=== PATIENT | male | born 1990 | race Caucasian/White ===

== ENCOUNTER → 2018-01-06 15:32 | Outpatient (CLI) | payer BC, SELFPAY ==
[2018-01-06 16:23] LABS: Basophils # 0.1 K/mm3 (0-0.2); Basophils % 1.2 % (0.1-2.0); Eosinophils # 0.5 K/mm3 (0.0-0.4); Eosinophils % 6.7 % (0.1-12.0); Hematocrit 46.9 % (42.0-52.0); Hemoglobin 15.8 g/dL (14.1-18.0); Lymphocytes # 1.8 K/mm3 (0.7-4.5); Lymphocytes % 23.7 K/mm3 (10-50); Mean Corpuscular HGB Conc 33.7 g/dL (31.8-35.4); Mean Corpuscular Hemoglobin 29.7 pg (27.0-31.2); Mean Corpuscular Volume 88.3 fl (80-94); Mean Platelet Volume 7.7 fl (7.4-10.4); Monocytes # 0.3 K/mm3 (0.1-1.0); Monocytes % 4.4 % (1.7-9.3); Neutrophils # 4.9 K/mm3 (1.8-7.8); Neutrophils % 64.1 % (37.0-80.0); Platelet Count 229 K/mm3 (142-424); Red Blood Count 5.31 M/mm3 (4.60-6.20); Red Cell Distribution Width 12.4 % (11.5-17.5); White Blood Count 7.6 K/mm3 (4.8-10.8)
[2018-01-06 16:49] LABS: Alanine Aminotransferase 23 U/L (12-78); Albumin Level 3.8 gm/dL (3.4-5.0); Albumin/Globulin Ratio 1.1 (1.1-1.8); Alkaline Phosphatase 83 U/L (46-116); Anion Gap 12.7 mEq/L (5-15); Bilirubin,Total 0.4 mg/dL (0.2-1.0); Blood Urea Nitrogen 16 mg/dL (7-18); Carbon Dioxide 27 mmol/L (21.0-32.0); Chloride 100 mmol/L (98-107); Chol/HDL Ratio 6.6 (1-3.5); Cholesterol 244 mg/dL (140-200); Estimated Glomerular Filt Rate 88 ml/min (>60); GFR (African American) 107 ML/MIN (>60); Globulin 3.4 gm/dl (1.3-3.2); Glucose 337 mg/dL (74-106); HDL Cholesterol 37 mg/dL (27-67); LDL Cholesterol 136 mg/dL (0-130); Sodium 135 mmol/L (136-145); T4 (Thyroxine) 7.1 ug/dl (4.7-13.3); Thyroid Stimulating Hormone 1.09 uIU/ml (0.358-3.740); Total Protein,Serum 7.2 gm/dL (6.4-8.2); Triglycerides 354 mg/dL (30-200); VLDL Cholesterol 71 mg/dL (0-40)
[2018-01-06 17:00] LABS: Hemoglobin A1C 9.3 % (0.0-7.0)
[2018-01-06 17:12] LABS: Aspartate Amino Transferase 11 U/L (15-37); Potassium 4.7 mmoL/L (3.5-5.1)
[2018-01-08 11:10] LABS: Hep A Ab, IgM Negative (Negative); Hepatitis B Core Antibody IgM Negative (Negative); Hepatitis B Surface Antigen Negative (Negative)
[2018-01-10 15:37] LABS: Hepatitis C Antibody <0.1 s/co ratio (0.0-0.9); Vitamin D 25 Hydroxy 19.8 ng/mL (30.0-100.0)
== END ==
PROVIDERS: Visit Provider Nurse Practitioner Family
DX: E11.9 Type 2 diabetes mellitus without complications (principal)
CPT/HCPCS: 36415; 80053; 80061; 80074; 82652; 83036; 84436; 84443; 85025

== ENCOUNTER → 2018-01-24 08:31 | Outpatient (CLI) | payer BC, SELFPAY | PROVIDERS: PCP Emergency Medicine; Visit Provider Nurse Practitioner Family | DX: E11.9 Type 2 diabetes mellitus without complications (principal) | CPT/HCPCS: 97802; G0108 ==

== ENCOUNTER → 2018-07-27 13:16 | Outpatient (CLI) | payer BC, SELFPAY ==
[2018-07-27 14:04] LABS: Hemoglobin A1C 7.2 % (0.0-7.0)
[2018-07-27 14:17] LABS: Basophils # 0.1 K/mm3 (0-0.2); Basophils % 1.2 % (0.1-2.0); Eosinophils # 0.7 K/mm3 (0.0-0.4); Eosinophils % 8.9 % (0.1-12.0); Hematocrit 45.2 % (42.0-52.0); Hemoglobin 15.2 g/dL (14.1-18.0); Lymphocytes # 1.5 K/mm3 (0.7-4.5); Lymphocytes % 19.8 K/mm3 (10-50); Mean Corpuscular HGB Conc 33.6 g/dL (31.8-35.4); Mean Corpuscular Hemoglobin 29.7 pg (27.0-31.2); Mean Corpuscular Volume 88.6 fl (80-94); Mean Platelet Volume 7.2 fl (7.4-10.4); Monocytes # 0.3 K/mm3 (0.1-1.0); Monocytes % 4.2 % (1.7-9.3); Neutrophils % 65.9 % (37.0-80.0); Platelet Count 221 K/mm3 (142-424); Red Blood Count 5.11 M/mm3 (4.60-6.20); White Blood Count 7.6 K/mm3 (4.8-10.8)
[2018-07-27 14:41] LABS: Alanine Aminotransferase 26 U/L (12-78); Albumin Level 3.9 gm/dL (3.4-5.0); Albumin/Globulin Ratio 1.4 (1.1-1.8); Alkaline Phosphatase 90 U/L (46-116); Anion Gap 12.6 mEq/L (5-15); Aspartate Amino Transferase 16 U/L (15-37); Bilirubin,Total 0.6 mg/dL (0.2-1.0); Blood Urea Nitrogen 19 mg/dL (7-18); Calcium 8.7 mg/dL (8.5-10.1); Carbon Dioxide 27 mmol/L (21.0-32.0); Chloride 103 mmol/L (98-107); Cholesterol 191 mg/dL (140-200); Creatinine,Serum 0.94 mg/dL (0.70-1.30); Estimated Glomerular Filt Rate 94 ml/min (>60); GFR (African American) 114 ML/MIN (>60); Globulin 2.8 gm/dl (1.3-3.2); Glucose 227 mg/dL (74-106); HDL Cholesterol 38 mg/dL (27-67); LDL Cholesterol 98 mg/dL (0-130); Potassium 4.6 mmoL/L (3.5-5.1); Sodium 138 mmol/L (136-145); T4 (Thyroxine) 7.4 ug/dl (4.7-13.3); Thyroid Stimulating Hormone 0.82 uIU/ml (0.358-3.740); Total Protein,Serum 6.7 gm/dL (6.4-8.2); Triglycerides 273 mg/dL (30-200); VLDL Cholesterol 55 mg/dL (0-40)
[2018-07-28 09:07] LABS: Vitamin D 25 Hydroxy 27.6 ng/mL (30.0-100.0)
[2018-07-28 18:41] LABS: Microalbumin, Urine <3.0 ug/mL (Not Estab.)
== END ==
PROVIDERS: PCP Emergency Medicine; Visit Provider Nurse Practitioner Family
DX: E11.9 Type 2 diabetes mellitus without complications (principal); R53.83 Other fatigue
CPT/HCPCS: 36415; 80053; 80061; 82043; 82652; 83036; 84436; 84443; 85025

== ENCOUNTER → 2018-08-14 11:50 | Outpatient (CLI) | payer BC, SELFPAY ==
--- NOTE | 2018-08-14 11:54 | NM_ITS ---
History and Indications: Hypertension, diabetes, hyperlipidemia, family history, chest pain, shortness of breath and fatigue Procedure: Patient exercised on Jeffrey protocol 11 minutes and 15 seconds, resting heart rate was 56 bpm resting blood pressure 136/75, with exercise maximum heart rate achieved was 1 89 bpm is equal to 99% of the maximum predicted heart rate and a blood pressure was 180/70. Test was started due to shortness of breath and fatigue, patient has good exercise capacity, achieved 12.8mets of workload on treadmill, the blood pressure response to exercise was adequate. Electrocardiogram: Resting electrocardiogram showed sinus bradycardia, with exercise there is less than 1.[address] segment depression noted from the baseline EKG. The EKG portion of the exercise Myoview is negative for ischemia. Cardiac stress and resting SPECT images: Cardiac stress and resting SPECT images were obtained using technetium 99 Myoview 31.4 mCi stress and 10.2 mCi at rest gated SPECT further analysis of segmental wall motion and calculation of the ejection fraction also done. Cardiac stress and rest SPECT images show uniform myocardial activity without segmental perfusion abnormality, computer derived ejection fraction is 61% with no regional wall motion abnormality, right ventricle is normal size and contractility. Conclusion: 1. The EKG portion of the exercise Myoview is negative for ischemia, patient has good exercise capacity achieved 12.8mets of workload on treadmill, the blood pressure response to exercise with adequate, patient complained of atypical chest pain with exercise with no EKG changes. 2. No scintigraphic evidence of reversible ischemia seen, computer derived ejection fraction is 61% with no regional wall motion abnormality, right ventricle is normal size and contractility.
--- NOTE | 2018-08-14 11:54 | CA_ITS ---
PROCEDURE: 2-D M-mode and color Doppler study INDICATIONS FOR THE TEST: Chest pain X COPD Heart Murmur Tobacco SmokingEX Palpitations FatigueX Syncope Edema Hypertension Diabetes MellitusX Rheumatic Fever SOB DOEXObesity Hyperlipidemia Family History HDX Additional History PATIENT INFORMATION HEIGHT: 64 WEIGHT:192 GENDER: Male B/P:131/75 2-D/M-MODE INTERPRETATION: 2-D MEASUREMENTS OBSERVED VALUES IN CMS Right Ventricular Dimension (RVDd) 1.6 Interventricular Septum (Thickness)(IVsd) .8 Left Ventricular Internal Dimensions(LVIDd) 5.0 Left Ventricular Posterior Wall (Thickness)(LVPWd) 1.0 Aortic Root 3.6 Aortic Cusp Separation 2.2 Left Atrial Dimensions (LAD) 2.7 2D 1. Left atrium is normal size, left ventricle is normal size, there is no concentric left ventricular hypertrophy, visually estimated ejection fraction 55% with no regional wall motion abnormality. 2. The right atrium and right ventricle are normal size and contractility. 3. The aortic, mitral and tricuspid valvular grossly normal. 4. The pulmonic valve is poorly visualized. 5. No significant pericardial effusion noted. DOPPLER INTERROGATION: Doppler interrogation of the aortic, mitral and tricuspid valvular presence of mild mitral and tricuspid regurgitation, tricuspid regurgitation jet velocity is inadequate for calculation of the right ventricular systolic pressure, diastolic parameters are within normal range. CONCLUSION: 1. Normal left ventricular size, preserved left ventricular systolic function, visually estimated ejection fraction 55% with no regional wall motion abnormality, diastolic parameters are within normal range. 2. Mild mitral and tricuspid regurgitation 3. No significant pericardial effusion noted.
--- NOTE | 2018-08-14 12:34 | HMH.ITSHM ---
Current Home Medications as stated by this patient Rafael Rausch or career services representative. []LISINOPRIL SIMVASTATIN INSULIN VITAMIN D
== END ==
PROVIDERS: PCP Nurse Practitioner Family; Visit Provider Internal Medicine Cardiovascular Disease
DX: R07.9 Chest pain, unspecified (principal)
CPT/HCPCS: 78452; 93017; 93306; A9502

== ENCOUNTER → 2018-09-11 14:07 | Outpatient (POV) | payer BC, SELFPAY | PROVIDERS: Visit Provider Nurse Practitioner Acute Care | DX: Z00.00 Encounter for general adult medical examination without abnormal findings (principal) ==

== ENCOUNTER → 2019-05-18 16:40 | Outpatient (CLI) | payer BC, SELFPAY ==
[2019-05-18 17:02] LABS: Basophils # 0.1 K/mm3 (0-0.2); Basophils % 1.1 % (0.1-2.0); Eosinophils # 0.2 K/mm3 (0.0-0.4); Eosinophils % 3.2 % (0.1-12.0); Hematocrit 46.6 % (42.0-52.0); Hemoglobin 15.5 g/dL (14.1-18.0); Lymphocytes # 1.9 K/mm3 (0.7-4.5); Lymphocytes % 24.8 % (10-50); Mean Corpuscular HGB Conc 33.3 g/dL (31.8-35.4); Mean Corpuscular Hemoglobin 29.2 pg (27.0-31.2); Mean Corpuscular Volume 87.9 fl (80-94); Monocytes # 0.4 K/mm3 (0.1-1.0); Monocytes % 5.1 % (1.7-9.3); Neutrophils % 65.9 % (37.0-80.0); Platelet Count 238 K/mm3 (142-424); Red Cell Distribution Width 13.4 % (11.5-17.5); White Blood Count 7.7 K/mm3 (4.8-10.8)
[2019-05-18 17:55] LABS: Alanine Aminotransferase 38 U/L (12-78); Albumin Level 3.9 gm/dL (3.4-5.0); Albumin/Globulin Ratio 1.2 (1.1-1.8); Alkaline Phosphatase 57 U/L (46-116); Anion Gap 11.8 mEq/L (5-15); Aspartate Amino Transferase 16 U/L (15-37); Bilirubin,Total 0.7 mg/dL (0.2-1.0); Blood Urea Nitrogen 17 mg/dL (7-18); Calcium 9.6 mg/dL (8.5-10.1); Carbon Dioxide 30 mmol/L (21.0-32.0); Chloride 102 mmol/L (98-107); Chol/HDL Ratio 6.3 (1-3.5); Cholesterol 269 mg/dL (140-200); Creatinine,Serum 1.11 mg/dL (0.70-1.30); Estimated Glomerular Filt Rate 77 ml/min (>60); GFR (African American) 93 ML/MIN (>60); Globulin 3.2 gm/dl (1.3-3.2); Glucose 205 mg/dL (74-106); HDL Cholesterol 43 mg/dL (27-67); LDL Cholesterol 160 mg/dL (0-130); Potassium 4.8 mmoL/L (3.5-5.1); Sodium 139 mmol/L (136-145); T4 (Thyroxine) 8.5 ug/dl (4.7-13.3); Thyroid Stimulating Hormone 2.46 uIU/ml (0.358-3.740); Total Protein,Serum 7.1 gm/dL (6.4-8.2); Triglycerides 328 mg/dL (30-200); VLDL Cholesterol 66 mg/dL (0-40)
[2019-05-18 18:25] LABS: Hemoglobin A1C 7.4 % (0.0-7.0)
[2019-05-20 17:02] LABS: Microalbumin, Urine 3.6 ug/mL (Not Estab.)
== END ==
PROVIDERS: Visit Provider Nurse Practitioner Family
DX: R53.83 Other fatigue (principal); E11.9 Type 2 diabetes mellitus without complications; Z79.4 Long term (current) use of insulin
CPT/HCPCS: 36415; 80053; 80061; 82043; 83036; 84436; 84443; 85025

== ENCOUNTER → 2021-09-04 13:52 | Outpatient (CLI) | payer BC, SELFPAY ==
[2021-09-04 14:20] LABS: Basophils # 0.1 K/mm3 (0-0.2); Basophils % 1.9 % (0.1-2.0); Eosinophils # 0.5 K/mm3 (0.0-0.4); Hematocrit 45.8 % (42.0-52.0); Hemoglobin 15.9 g/dL (14.1-18.0); Lymphocytes # 1.7 K/mm3 (0.7-4.5); Lymphocytes % 25.7 % (10-50); Mean Corpuscular HGB Conc 34.7 g/dL (31.8-35.4); Mean Corpuscular Hemoglobin 31.1 pg (27.0-31.2); Mean Corpuscular Volume 89.6 fl (80-94); Mean Platelet Volume 8.1 fl (7.4-10.4); Monocytes # 0.3 K/mm3 (0.1-1.0); Monocytes % 4.9 % (1.7-9.3); Neutrophils # 4.1 K/mm3 (1.8-7.8); Neutrophils % 60.5 % (37.0-80.0); Platelet Count 228 K/mm3 (142-424); Red Blood Count 5.11 M/mm3 (4.60-6.20); Red Cell Distribution Width 13.4 % (11.5-17.5); White Blood Count 6.7 K/mm3 (4.8-10.8)
[2021-09-04 14:57] LABS: Chloride 103 mmol/L (98-107); Potassium 4.4 mmoL/L (3.5-5.1); Sodium 136 mmol/L (136-145)
[2021-09-04 14:59] LABS: Alanine Aminotransferase 40 U/L (12-78); Alkaline Phosphatase 65 U/L (38-126); Aspartate Amino Transferase 41 U/L (17-59); Bilirubin,Total 0.7 mg/dl (0.2-1.3); Blood Urea Nitrogen 14 mg/dl (9-20); Estimated Glomerular Filt Rate 111 ml/min (>60); GFR (African American) 135 ML/MIN (>60)
[2021-09-04 15:00] LABS: Albumin Level 4.4 g/dl (3.5-5.0); Albumin/Globulin Ratio 2.1 (1.1-1.8); Anion Gap 10.4 mEq/L (5-15); Calcium 9.2 mg/dl (8.4-10.2); Carbon Dioxide 27 mmol/L (22.0-30.0); Globulin 2.1 g/dL (1.3-3.2); Glucose 222 mg/dl (74-100); Total Protein,Serum 6.5 g/dl (6.3-8.2); Triglycerides 124 mg/dl (30-150); VLDL Cholesterol 25 mg/dL (0-40)
[2021-09-04 15:11] LABS: Direct LDL Cholesterol 158.91 mg/dL (100-129)
[2021-09-04 15:17] LABS: 25-OH Vitamin D, Total 24.9 ng/mL (30-100)
[2021-09-04 15:23] LABS: Hemoglobin A1C 7.5 % (4.0-6.0)
[2021-09-04 15:31] LABS: Thyroid Stimulating Hormone 2.06 uIU/mL (0.465-4.68)
[2021-09-04 15:41] LABS: Chol/HDL Ratio 3.9 (1-3.5); Cholesterol 222 mg/dl (140-200); HDL Cholesterol 57 mg/dl (40-60)
[2021-09-04 16:31] LABS: Microalbumin < 6.000 mg/L (0-16.7)
[2021-09-07 12:24] LABS: C-Peptide 1.1 ng/mL (1.1-4.4)
== END ==
PROVIDERS: Visit Provider Nurse Practitioner Family
DX: E11.9 Type 2 diabetes mellitus without complications (principal); E55.9 Vitamin D deficiency, unspecified; Z79.4 Long term (current) use of insulin
CPT/HCPCS: 36415; 80053; 80061; 82043; 82306; 83036; 84436; 84443; 84681; 85025

== ENCOUNTER → 2021-11-02 13:14 | Outpatient (CLI) | payer BC, SELFPAY ==
--- NOTE | 2021-11-02 13:34 | XR_ITS ---
FINAL REPORT CLINICAL HISTORY: pain, pinky toe pain FINDINGS: 3 views of the left foot were obtained. There is no acute fracture or dislocation. The joint spaces are intact. The soft tissues are unremarkable. IMPRESSION: No acute process. Reviewed, Interpreted and Dictated by Dylan Graves MD Transcribed by Néstor Prado Authenticated by Dylan Graves MD on 11/02/2021 03:39:06 PM [facility]
--- NOTE | 2021-11-02 13:34 | XR_ITS ---
FINAL REPORT CLINICAL HISTORY: pain, pinky toe pain FINDINGS: 3 views of the right foot were obtained. There is no acute fracture or dislocation. The joint spaces are intact. The soft tissues are unremarkable. IMPRESSION: No acute process. Reviewed, Interpreted and Dictated by Dylan Graves MD Transcribed by Néstor Prado Authenticated by Dylan Graves MD on 11/02/2021 03:38:57 PM [facility]
== END ==
PROVIDERS: PCP Nurse Practitioner Family; Visit Provider Podiatrist
DX: M79.672 Pain in left foot (principal); M79.671 Pain in right foot
CPT/HCPCS: 73630

== ENCOUNTER 2021-12-02 11:58 | Emergency (ER) | payer BC, SELFPAY ==
[2021-12-02 12:16] LABS: POC Glucose,Bedside 207 (70-110)
--- NOTE | 2021-12-02 12:27 | PC.NURSE ---
HelenAlvaro went in and obtained FSBS which was 207. Pt had checked in with elevated BS. I went in to triage patient and was talking with him about what had brought him into the ED and he advised that he really just needed his insulin prescription refilled and had been having issues with the pharmacy. He told me that he normally saw Patel and Dr. Cedillo. I asked the patient if he needed to see the ER doctor for any reason and he replied No not really, I just really need my prescription for insulin figured out. I asked him if he would be ok with me calling Dr. Cedillo to help try and figure out things instead of him being seen by ED MD. PT was agreeable and thankful for this. I moved patient to triage room, and came and called Dr. Cedillo and explained the situation. He advised to have the patient just come down to his office and he would take care of it for him. Pt agreeable with this plan and very thankful. Called and let Emma know that patient would be coming down and I had spoken with Dr. Cedillo about him.
[2021-12-02 12:48] VITALS: BP 0/0; PULSE 0; RESP 0; TEMP -17.7; TEMP 0; O2SAT 0
== END 2021-12-02 12:51 | disposition left against medical advice (07) ==
LOC: ER 12:04
PROVIDERS: Emergency Provider Student in an Organized Health Care Education/Training Program; PCP Nurse Practitioner Family
DX: Z53.21 Procedure and treatment not carried out due to patient leaving prior to being seen by health care provider (principal)
CPT/HCPCS: 82962; 99211

== ENCOUNTER → 2023-02-10 19:10 | Outpatient (CLI) | payer BC, SELFPAY ==
[2023-02-10 19:38] LABS: Basophils # 0.1 K/mm3 (0-0.2); Basophils % 0.7 % (0.1-2.0); Eosinophils # 0.3 K/mm3 (0.0-0.4); Eosinophils % 3.3 % (0.1-12.0); Hemoglobin 14.7 g/dL (14.1-18.0); Lymphocytes # 1.2 K/mm3 (0.7-4.5); Lymphocytes % 15.9 % (10-50); Mean Corpuscular HGB Conc 32.8 g/dL (31.8-35.4); Mean Corpuscular Hemoglobin 29.5 pg (27.0-31.2); Mean Corpuscular Volume 90.2 fl (80-94); Monocytes # 0.4 K/mm3 (0.1-1.0); Monocytes % 4.7 % (1.7-9.3); Neutrophils # 5.9 K/mm3 (1.8-7.8); Neutrophils % 75.3 % (37.0-80.0); Platelet Count 217 K/mm3 (142-424); Red Blood Count 4.99 M/mm3 (4.60-6.20); Red Cell Distribution Width 13.1 % (11.5-17.5); White Blood Count 7.8 K/mm3 (4.8-10.8)
[2023-02-10 19:48] LABS: Alanine Aminotransferase 22 U/L (12-78); Albumin Level 4.6 g/dl (3.5-5.0); Albumin/Globulin Ratio 1.8 (1.1-1.8); Alkaline Phosphatase 57 U/L (38-126); Anion Gap 15.2 mEq/L (5-15); Aspartate Amino Transferase 30 U/L (17-59); Bilirubin,Total 1.3 mg/dl (0.2-1.3); Blood Urea Nitrogen 15 mg/dl (9-20); Calcium 9.4 mg/dl (8.4-10.2); Carbon Dioxide 26 mmol/L (22.0-30.0); Chloride 102 mmol/L (98-107); Estimated Glomerular Filt Rate 111 ml/min (>60); GFR (African American) 134 ML/MIN (>60); Globulin 2.6 g/dL (1.3-3.2); Glucose 85 mg/dl (74-100); Potassium 4.2 mmoL/L (3.5-5.1); Sodium 139 mmol/L (136-145); Total Protein,Serum 7.2 g/dl (6.3-8.2)
[2023-02-10 20:18] LABS: Thyroid Stimulating Hormone 0.63 uIU/mL (0.465-4.68)
[2023-02-11 11:13] LABS: Chol/HDL Ratio 4.1 (1-3.5); Cholesterol 192 mg/dl (140-200); HDL Cholesterol 47 mg/dl (40-60); Triglycerides 131 mg/dl (30-150); VLDL Cholesterol 26 mg/dL (0-40)
[2023-02-11 11:24] LABS: Direct LDL Cholesterol 133.49 mg/dL (100-129)
== END ==
LOC: LAB 03-19 02:17 → LAB.DROPOF 03-19 02:18
PROVIDERS: PCP Nurse Practitioner Family; Visit Provider Nurse Practitioner Family
DX: E11.9 Type 2 diabetes mellitus without complications (principal); Z79.4 Long term (current) use of insulin
CPT/HCPCS: 80053; 80061; 84443; 85025

== ENCOUNTER 2023-07-12 07:45 | Inpatient (IN) | payer MEDICAID, SELFPAY ==
[2023-07-12] VITALS (31 sets, daily range): BP systolic 118–171; BP diastolic 66–94; PULSE 88–136; RESP 16–31; TEMP 36.8–38.1; O2SAT 97–100; BMI 25.0; BMI 24.7
--- NOTE | 2023-07-12 07:46 | CT_ITS ---
FINAL REPORT TECHNIQUE: Pre-and postcontrast images of the abdomen and pelvis were performed by computed tomography. Extensive 3-D reconstruction images were performed. A CTA was performed. This study was performed with techniques to keep radiation doses as low as reasonably achievable (ALARA). Individualized dose reduction techniques using automated exposure control or adjustment of mA and/or kV according to the patient''s size were employed. CLINICAL HISTORY: UGIB FINDINGS: ABDOMEN: The lung bases are clear. Precontrast images demonstrate no evidence of nephrolithiasis. No adrenal masses are identified. There is fatty infiltration of the liver. The spleen and pancreas are unremarkable. CTA: The abdominal aorta is proper caliber. The SMA, celiac axis, and PAVEL are patent. There is no significant stenosis or calcification. The renal arteries are patent bilaterally. There is no significant stenosis of the common, external, or internal iliac arteries. IMPRESSION: No evidence of renal vascular hypertension or significant renal artery stenosis. Reviewed, Interpreted and Dictated by Miguel Nunes III, MD Transcribed by Joyce Dowd Authenticated and [facility]
--- NOTE | 2023-07-12 07:46 | CT_ITS ---
FINAL REPORT CLINICAL HISTORY: UGIB and tachypnea FINDINGS: Thin section axial CT images of the chest were obtained with contrast. 3D reformatted images were also obtained. This study was performed with techniques to keep radiation doses as low as reasonably achievable (ALARA). Individualized dose reduction techniques using automated exposure control or adjustment of mA and/or kV according to the patient''s size were employed. There is wall thickening of the mid and distal esophagus which may be inflammatory or neoplastic. There is no evidence of pulmonary embolism. There is no evidence of thoracic aortic aneurysm or dissection. There is no evidence of mediastinal or hilar mass or adenopathy. There is no evidence of pulmonary mass or nodule. No localized inflammatory process is seen within the lungs. IMPRESSION: No evidence of pulmonary embolism. Wall thickening of the mid and distal esophagus, may be inflammatory or neoplastic. Recommend correlation with upper endoscopy. Reviewed, Interpreted and Dictated by Miguel Nunes III, MD Transcribed by Joyce Dowd Authenticated and [facility]
--- NOTE | 2023-07-12 07:47 | XR_ITS ---
FINAL REPORT CLINICAL HISTORY: UGIB, tachypnea FINDINGS: The heart size is normal. The mediastinum is within normal limits. There is no acute cardiopulmonary process. There is no pleural effusion. There is no pneumothorax. The bony thorax is intact. IMPRESSION: No acute cardiopulmonary process. Reviewed, Interpreted and Dictated by Miguel Nunes III, MD Transcribed by Néstor Prado Authenticated and [facility]
[2023-07-12 07:52] LABS: POC Glucose,Bedside 468 (70-110)
--- NOTE | 2023-07-12 07:55 | HMH.EDGENADL ---
Discharge Plan Disposition Patient Disposition: Xfer Short-Term Hosp Chief Complaint: Nausea/Vomiting/Diarrhea Prescriptions Prescriptions: No Action insulin lispro 100 unit/mL solution See Rx Instructions .ROUTE .COMPLEX Qty: 30 2RF Dose Instruction: PER SLIDING SCALE USE DIRECTED IN OMNIPOD WITH A MAX DOSE OF 150 UNITS PER DAY Rx Instructions: PER SLIDING SCALE USE DIRECTED IN OMNIPOD WITH A MAX DOSE OF 150 UNITS PER DAY (DME) Omnipod Dash Pods (Gen 4) Cartridge See Rx Instructions .ROUTE .COMPLEX Qty: 30 2RF Dose Instruction: CHANGE EVERY 72 HOURS Rx Instructions: CHANGE EVERY 72 HOURS lisinopril 2.5 mg tablet See Rx Instructions .ROUTE .COMPLEX Qty: 90 0RF Dose Instruction: Take 1 tablet by mouth once daily Rx Instructions: Take 1 tablet by mouth once daily simvastatin 10 mg tablet See Rx Instructions .ROUTE .COMPLEX Qty: 90 0RF Dose Instruction: TAKE 1 TABLET BY MOUTH AT BEDTIME Rx Instructions: TAKE 1 TABLET BY MOUTH AT BEDTIME Referrals Follow up/Referrals: Hedy Manley PA [Primary Care Provider] - See instructions Clinical Impressions Clinical Impression: Acute upper GI bleed, Esophagitis, DKA, type 1 Instructions Patient Instructions: DI for Diarrhea and Traveler's Diarrhea -- Adult, DI for Diarrhea and Traveler's Diarrhea -- Child, DI for Nausea -- Adult, DI for Nausea -- Child Discharge ED Provider: Per [facility] HPI General Chief complaint: Nausea/Vomiting/Diarrhea Stated complaint: bloody emesis Time Seen by Provider: 07/12/23 07:45 History of Present Illness HPI narrative: 33-year-old male history of type 1 diabetes presenting with vomiting. Patient states that he started vomiting 1 day prior to arrival while he was eating a burger. Did not vomit again until last night. Since that time, has been vomiting every 2 hours and it has been coffee-ground emesis versus bright red blood. Having chest tightness and difficulty breathing secondary to a feeling of pressure, not exactly chest pain. No overt abdominal pain. Denies fevers or chills, changes in voice, cough, hemoptysis, melena or hematochezia, anything like this in the past. Patient states that he has been compliant with his diabetes medications. Related Data Previous Rx's Medication Instructions Recorded insulin lispro 100 unit/mL See Rx Instructions .Route 06/10/23 subcutaneous solution .COMPLEX #30 mL insulin pump cart,cont inf,BT #30 ea 06/10/23 (Omnipod Dash Pods (Gen 4) subcutaneous cartridge) lisinopril 2.5 mg tablet See Rx Instructions .Route 06/10/23 .COMPLEX #90 tabs simvastatin 10 mg tablet See Rx Instructions .Route 06/10/23 .COMPLEX #90 tabs Allergies Allergy/AdvReac Type Severity Reaction Status Date / Time aspirin Allergy Severe Hives on Verified 02/10/23 14:10 face - [facility]ness in [facility] Disclaimer: The information contained in this section may have been updated after the patient was seen, as this information can be updated by other users. Medical History Diabetes mellitus Social History Smoking Status: Never smoker alcohol intake: current substance use type: marijuana current occupational status: employed Travel in the last 8 weeks: None household members: family housing: house ROS Obtained: Yes All systems reviewed & no additional complaints except as documented Physical Exam General General appearance: alert, anxious, in distress and other (Diaphoretic) Head Head exam: atraumatic and normocephalic Eye Eye exam: Present normal appearance, PERRL and EOMI ENT ENT exam: Present mucous membranes dry and other (old blood on tongue) Neck Neck exam: Present normal inspection, full ROM, trachea midline and other (no evidence of crepitus); Abs
[2023-07-12 08:02] LABS: Basophils % 0.2 % (0.1-2.0); Eosinophils % 0.1 % (0.1-12.0); Hematocrit 53.1 % (42.0-52.0); Hemoglobin 17.3 g/dL (14.1-18.0); Lymphocytes # 0.7 K/mm3 (0.7-4.5); Lymphocytes % 4.6 % (10-50); Mean Corpuscular HGB Conc 32.5 g/dL (31.8-35.4); Mean Corpuscular Hemoglobin 29.3 pg (27.0-31.2); Mean Corpuscular Volume 90.1 fl (80-94); Mean Platelet Volume 8.3 fl (7.4-10.4); Monocytes # 0.4 K/mm3 (0.1-1.0); Monocytes % 2.4 % (1.7-9.3); Neutrophils # 14.6 K/mm3 (1.8-7.8); Neutrophils % 92.7 % (37.0-80.0); Platelet Count 331 K/mm3 (142-424); Red Blood Count 5.89 M/mm3 (4.60-6.20); Red Cell Distribution Width 12.6 % (11.5-17.5); White Blood Count 15.8 K/mm3 (4.8-10.8)
[2023-07-12 08:03] LABS: Chloride 94 mmol/L (98-107); Potassium 4.9 mmoL/L (3.5-5.1); Sodium 132 mmol/L (136-145)
[2023-07-12 08:05] LABS: Alanine Aminotransferase 27 U/L (12-78); Blood Urea Nitrogen 23 mg/dl (9-20); Creatinine Clearance Estimated 88 mL/min (50-200); Estimated Glomerular Filt Rate 69 ml/min (>60); GFR (African American) 83 ML/MIN (>60); MANUAL DIFFERENTIAL MANUAL DIFFERENTIAL (MANUAL DIFF)
[2023-07-12 08:06] LABS: Albumin Level 5.2 g/dl (3.5-5.0); Albumin/Globulin Ratio 1.4 (1.1-1.8); Alkaline Phosphatase 91 U/L (38-126); Anion Gap 33.9 mEq/L (5-15); Aspartate Amino Transferase 26 U/L (17-59); Bilirubin,Total 1.9 mg/dl (0.2-1.3); Calcium 9.6 mg/dl (8.4-10.2); Globulin 3.6 g/dL (1.3-3.2); Lactic Acid 3.2 mmol/L (0.7-2.1); Lipase 28 U/L (23-300); Salicylate 5.2 mg/dL (2.0-20.0); Total Protein,Serum 8.8 g/dl (6.3-8.2)
[2023-07-12 08:09] LABS: Acetone, Serum (Rapid) Small (None Detect)
[2023-07-12 08:11] LABS: Carbon Dioxide 9 mmol/L (22.0-30.0); Glucose 434 mg/dl (74-100)
--- NOTE | 2023-07-12 08:12 | PC.NURSE ---
Respiratory notified of VBG and blood in lab.
[2023-07-12 08:18] LABS: Lymphocytes % 8 % (10-50); Monocytes % 3 % (2-9); Neutrophils % 87 % (42-76); Total Cells Counted 100
[2023-07-12 08:19] LABS: Platelet Estimate Normal; RBC Morphology Normal
[2023-07-12 08:20] LABS: Troponin I < 0.01 ng/ml (0.00-0.034)
--- NOTE | 2023-07-12 08:22 | ECG_ITS ---
APPROVED REPORT Exam: Resting ECG HR:91 bpm ECG Measurements Heart Rate 91 AXES RI 119 P 62 QRSd 97 QRS 32 QT 370 T 46 QTc 418 Conclusion SINUS RHYTHM WITH SHORT RI INTERVAL Bi - atrial abnormality POSSIBLE RIGHT VENTRICULAR CONDUCTION DELAY [RSR (QR) IN V1/V2] ABNORMAL ECG UNCONFIRMED REPORT Electronically signed by : Agustín Kent MD 07/13/2023 08:50:08
[2023-07-12 08:23] LABS: T4 (Thyroxine) 13.7 ug/dl (5.53-11.0)
[2023-07-12 08:24] LABS: VBG Base Excess -18.7 mmol/L (-2.4-2.3); VBG Oxygen Saturation 83.6 % (50-70); VBG PO2 52.3 mmol/L (28-40); VBG Total CO2 10.9 mmol/L (23-27)
[2023-07-12 08:26] LABS: VBG PH 7.16 mmol/L (7.31-7.41)
[2023-07-12 08:31] LABS: Hemoglobin A1C 8.5 % (4.0-6.0)
[2023-07-12 08:37] LABS: Thyroid Stimulating Hormone 1.05 uIU/mL (0.465-4.68)
--- NOTE | 2023-07-12 08:42 | PC.NURSE ---
PT TO CT
--- NOTE | 2023-07-12 08:45 | EXP.PHA.CONS ---
Pharmacy Consult Date: 07/12/23 Time: 08:45 Referring provider: DR. NASH Reason for Consult:: VANCOMYCIN DOSING Allergies Allergy/AdvReac Type Severity Reaction Status Date / Time aspirin Allergy Severe Hives on Verified 02/10/23 14:10 face - Tightness in chest Home Medications Medication Instructions Recorded Confirmed Type insulin lispro 100 unit/mL See Rx Instructions .Route 06/10/23 Rx subcutaneous solution .COMPLEX #30 mL insulin pump cart,cont inf,BT #30 ea 06/10/23 Rx (Omnipod Dash Pods (Gen 4) subcutaneous cartridge) lisinopril 2.5 mg tablet See Rx Instructions .Route 06/10/23 Rx .COMPLEX #90 tabs simvastatin 10 mg tablet See Rx Instructions .Route 06/10/23 Rx .COMPLEX #90 tabs New Prescriptions to Start Prescriptions: Height: 1.7 m Weight: 72.575 kg Laboratory Results:: Laboratory Results - last 24 hr 07/12/23 07:44: POC Glucose 468 H* 07/12/23 07:50: WBC 15.8 H, RBC 5.89, Hgb 17.3, Hct 53.1 H, MCV 90.1, MCH 29.3, MCHC 32.5, RDW 12.6, Plt Count 331, MPV 8.3, Neut % (Auto) 92.7 H, Lymph % (Auto) 4.6 L, Rowan % (Auto) 2.4, Eos % (Auto) 0.1, Baso % (Auto) 0.2, Neut # (Auto) 14.6 H, Lymph # (Auto) 0.7, Rowan # (Auto) 0.4, Eos # (Auto) 0.0, Baso # (Auto) 0.0, Total Counted 100, Neutrophils % (Manual) 87 H, Band Neutrophils % 2.0, Lymphocytes % (Manual) 8 L, Monocytes % (Manual) 3, Platelet Estimate Normal, RBC Morphology Normal, Sodium 132 L, Potassium 4.9, Chloride 94 L, Carbon Dioxide 9 L*, Anion Gap 33.9 H, BUN 23 H, Creatinine 1.20, Estimated Creat Clear 88, Estimated GFR 69, Est GFR ( Amer) 83, Glucose 434 H*, Hemoglobin A1c 8.5 H, Lactate 3.2 H, Calcium 9.6, Total Bilirubin 1.9 H, AST 26, ALT 27, Alkaline Phosphatase 91, Troponin I < 0.01, Total Protein 8.8 H, Albumin 5.2 H, Globulin 3.6 H, Albumin/Globulin Ratio 1.4, Lipase 28, TSH 1.05, Thyroxine (T4) 13.7 H, Salicylates 5.2, Acetone Level Small 07/12/23 08:00: Blood Type O Positive 07/12/23 08:01: VBG pH 7.16 L, VBG pCO2 29.0 L, VBG pO2 52.3 H, VBG HCO3 10.0 L, VBG Total CO2 10.9 L, VBG O2 Saturation 83.6 H, VBG Base Excess -18.7 L Medical History: Medical History (Updated 12/02/21 @ 12:51 by Missy Lees RN) Diabetes mellitus Assessment and Plan Assessment and plan all Dx Assessment and Plan for all problems:: Pharmacokinetic dosing service Objective: Patient: Floor: Age: 33 yo Serum creatinine: 1.2 mg/dL Height: 67.0 Inches Weight (kg): 72.6 Assessment: IBW (kg): 66.10 Dosing wt(kg): 72.6 Estimated Creatinine clearance (ml/min): 80.3 CRCL method: Cockcroft and Gault using ibw(default). Drug selected: Vancomycin Loading dose (mg): 0 Vd (liters): 61.7 (factor used: 0.85 L/kg) Samir (hr-1): 0.071 Half life (hrs): 9.76 Recommended dose: 1250 mg Interval: 12 hrs Infusion time (hrs): 2.0 Predicted peak (mcg/mL): 32.9 Predicted trough (mcg/mL): 16.18 Total body weight is being used for vancomycin dosing. Recommendations: Give Vancomycin 1250 mg q 12 hrs with an expected Cpeak of 32.9 mcg/ml and an expected Ctrough of 16.18 mcg/ml ----Vanco only - ignore for aminoglycosides----- CLvanco= 4.38 L/hr AUC 0-24 /LM Data: LM 0.5 mcg/mL: AUC/LM: 1141.6 LM 1.0 mcg/mL: AUC/LM: 570.8 --------- LM 1.5 mcg/mL: AUC/LM: 380.5 LM 2.0 mcg/mL: AUC/LM: 285.4
--- NOTE | 2023-07-12 09:14 | PC.NURSE ---
PT RETURNED FROM CT
--- NOTE | 2023-07-12 09:24 | PC.NURSE ---
pt returned from radiology
--- NOTE | 2023-07-12 09:47 | PC.NURSE ---
spoke with [facility]
--- NOTE | 2023-07-12 09:52 | PC.NURSE ---
dr shelton speaking to [facility]
--- NOTE | 2023-07-12 10:05 | PC.NURSE ---
called [facility] to speak with [facility] GI doctor Wally Mann about this Pt per ER Doctor Tristian.
--- NOTE | 2023-07-12 10:07 | PC.NURSE ---
Dr Mann did not answer but they left him a message and as soon as he calls them back they will call us and connect to speak with ER Doctor
[2023-07-12 10:32] LABS: VBG Base Excess -18.3 mmol/L (-2.4-2.3); VBG HCO3 10.7 mmol/L (23-30); VBG Oxygen Saturation 71.1 % (50-70); VBG PCO2 32.5 mmol/L (35-51); VBG PO2 40.9 mmol/L (28-40); VBG Total CO2 11.7 mmol/L (23-27)
[2023-07-12 10:34] LABS: POC Glucose,Bedside 372 (70-110)
[2023-07-12 10:35] LABS: VBG PH 7.14 mmol/L (7.31-7.41)
--- NOTE | 2023-07-12 10:35 | PC.NURSE ---
notified of vbg results
--- NOTE | 2023-07-12 10:47 | PC.NURSE ---
[facility] called wanting to know if we had heard from Dr Mann yet about this pt and advised them that we have not and they would try and page him again.
[2023-07-12 10:57] LABS: Lactic Acid 2.9 mmol/L (0.7-2.1)
[2023-07-12 11:08] LABS: Troponin I < 0.01 ng/ml (0.00-0.034)
[2023-07-12 11:18] LABS: Anion Gap 28.5 mEq/L (5-15); Blood Urea Nitrogen 22 mg/dl (9-20); Calcium 8.8 mg/dl (8.4-10.2); Chloride 99 mmol/L (98-107); Creatinine Clearance Estimated 96 mL/min (50-200); Estimated Glomerular Filt Rate 76 ml/min (>60); GFR (African American) 92 ML/MIN (>60); Glucose 337 mg/dl (74-100); Potassium 4.5 mmoL/L (3.5-5.1); Sodium 133 mmol/L (136-145)
[2023-07-12 11:27] LABS: Carbon Dioxide 10 mmol/L (22.0-30.0)
--- NOTE | 2023-07-12 11:46 | PC.NURSE ---
called [facility] back and they would try and page him again and would call us back.
--- NOTE | 2023-07-12 11:52 | PC.NURSE ---
[facility] transfer punta santiago called to inform that Dr Case is in a procedure and will call when he is done. But if we havent heard from him in 30 min to call back. They called and 11:52
[2023-07-12 11:54] LABS: Reflex Lactic Add Lactic Reflex
--- NOTE | 2023-07-12 11:56 | PC.NURSE ---
Called [facility] to check on transfer for GI services, s/w [facility] coordinator Miranda. States she will call back with on-call GI.
--- NOTE | 2023-07-12 12:20 | PC.NURSE ---
Dr. Lubin s/w [facility] GI provider
--- NOTE | 2023-07-12 12:25 | PC.NURSE ---
Notified radiology to prepare a disc of images. Also asked for images to be power-shared, they will attempt to do so
--- NOTE | 2023-07-12 12:27 | PC.NURSE ---
Dr. Pagan (GI) agrees to accept pt.
[2023-07-12 12:40] LABS: POC Glucose,Bedside 309 (70-110)
--- NOTE | 2023-07-12 14:07 | PC.NURSE ---
called [facility] and they do no have a bed yet. It has been turned over to the Master Cosmetologist and advised us that they are still working on getting a bed. if they dont have anything by 5 oclock they will call back for an update on the patient.
[2023-07-12 15:32] LABS: Chloride 105 mmol/L (98-107); Potassium 4.3 mmoL/L (3.5-5.1); Sodium 134 mmol/L (136-145)
[2023-07-12 15:35] LABS: Anion Gap 19.3 mEq/L (5-15); Blood Urea Nitrogen 21 mg/dl (9-20); Calcium 8.5 mg/dl (8.4-10.2); Carbon Dioxide 14 mmol/L (22.0-30.0); Creatinine Clearance Estimated 106 mL/min (50-200); Estimated Glomerular Filt Rate 85 ml/min (>60); GFR (African American) 103 ML/MIN (>60); Glucose 239 mg/dl (74-100); Lactic Acid Follow Up (RFLX 1) 1.3 mmol/L (0.7-2.1)
[2023-07-12 15:59] LABS: Troponin I < 0.01 ng/ml (0.00-0.034)
[2023-07-12 16:48] LABS: POC Glucose,Bedside 200 (70-110)
--- NOTE | 2023-07-12 17:30 | PC.NURSE ---
spoke with [facility] who states they do not have an estimated time a bed will be available.
[2023-07-12 18:03] LABS: Anion Gap 24.7 mEq/L (5-15); Blood Urea Nitrogen 21 mg/dl (9-20); Calcium 9.1 mg/dl (8.4-10.2); Carbon Dioxide 11 mmol/L (22.0-30.0); Chloride 105 mmol/L (98-107); Creatinine Clearance Estimated 118 mL/min (50-200); Estimated Glomerular Filt Rate 96 ml/min (>60); GFR (African American) 116 ML/MIN (>60); Glucose 204 mg/dl (74-100); Potassium 4.7 mmoL/L (3.5-5.1); Sodium 136 mmol/L (136-145)
[2023-07-12 18:41] LABS: POC Glucose,Bedside 221 (70-110)
--- NOTE | 2023-07-12 19:41 | PC.NURSE ---
Glocose 129, Insulin drip decreased by 50%, to 3.6ml/hr. Verified by Radha
[2023-07-12 19:43] LABS: POC Glucose,Bedside 129 (70-110)
--- NOTE | 2023-07-12 19:53 | PC.NURSE ---
I spoke with Chad to see if it was possible to admit the pt while waiting on a bed from [facility]. Chad said as long as the hospitalist agreed that was fine. I relayed the message to Dr. Britt
--- NOTE | 2023-07-12 20:00 | PC.NURSE ---
Called [facility] about a potential bed placement. Advised by Gaye at the call center that they do not have a critical bed at this time and that they have 2-3 potential critical care pts in their ER at this time also waiting for bed placement too. Advised it could be hours or longer before they would be able to place him in a bed at that facility. Advised housekeeper nanny and RN. CR
--- NOTE | 2023-07-12 20:10 | PC.NURSE ---
Requested a bed for an admission to [facility]
--- NOTE | 2023-07-12 20:28 | PC.NURSE ---
Blood Glucose 122, Insulin drip decreased by 50% to 1.8ml/hr. aware
[2023-07-12 20:35] LABS: POC Glucose,Bedside 122 (70-110)
[2023-07-12 20:51] LABS: Anion Gap 15.4 mEq/L (5-15); Blood Urea Nitrogen 19 mg/dl (9-20); Calcium 8.9 mg/dl (8.4-10.2); Carbon Dioxide 20 mmol/L (22.0-30.0); Chloride 106 mmol/L (98-107); Creatinine Clearance Estimated 106 mL/min (50-200); Estimated Glomerular Filt Rate 85 ml/min (>60); GFR (African American) 103 ML/MIN (>60); Glucose 106 mg/dl (74-100); Potassium 4.4 mmoL/L (3.5-5.1); Sodium 137 mmol/L (136-145)
--- NOTE | 2023-07-12 20:58 | PC.NURSE ---
Patient arrived to floor via stretcher at 20:56.
[2023-07-12 21:31] LABS: POC Glucose,Bedside 103 (70-110)
--- NOTE | 2023-07-12 21:41 | EXP.HP ---
History of Present Illness *Admission Date: 07/12/23 *Reason for visit:: DKA/ Viral Illness/ esophagus thickening *History of present illness: 33 year old male presented to the ED this morning around 0745. He presented with c/o vomting. He reported to the ED staff that he had been vomiting ever 2 hours and it has been bright red and dark. The pt reports one episode of vomiting in ED. The Day shift ED physician note reports dark red venous blood in vomit bag. PMHX of DM type 1. Dx at age of 23 and reports no prior DKA episodes. The pt states that he woke up Tuesday morning and was having muscle weakness and a headache. This occurred prior to the vomiting. He states he is complaint with his diabetes but has not been able to keep up with it due to vomiting for one day. The pt states as the vomiting progressed, he started to noticed the blood with it. Denies any lower GI bleeding. His hgb was 17.3 and was found to be in DKA due to hyperglycemia, elevated anion gap greater than 30, acetone in the blood and VBG with pH 7.1, CO2 29, bicarb 10.0. His CT of his chest revealed wall thickening of the mid and distal esophagus and the CT of the abdomen was negative for any source of active bleeding. Dr. Lubin spoke with Dr. Pagan at [facility] for further medical management. He spent 12 hours in the ED waiting to be transferred to [facility] and was started on the DKA protocol and given broad spectrum antibotics. At 20:30, Dr. Britt in the ED consulted hospitalist team at [facility] for possible admission. In the 12 hours of waiting the pt did not have any further episodes of vomiting. He was still on the the insulin drip and was hemodynamically stable in the ED. [facility] reported that pt would not be transferred anytime soon and was placed on a waitlist. The transfer to [facility] was canceled. The pt was admitted here to [facility] on the medical floor for ICU management of his insulin gtt and general surgery consult in the morning. The pt arrives to the ICU room without c/o nausea or pain. His blood sugar was 106 @ 2030 with the insulin gtt running. Upon my admission assessment, it was found that the pt was also wearing his dexcom and had been receiving insulin through it as well. His anion gap upon admission was 15 and his blood glucose was 103. Due to receiving insulin through dexcom as well, I had the insulin pump stopped and dexcom removed. The pt is NPO at midnight for surgery consult. SSI will be orderd. The pt will remain on D5 1/2 normal saline until next blood glucose test. The pt has blood cultures obtained in the ED. Upon admission, a CBC, acetone, occult stool, vbg, flu, covid, and urine are pending. The pt denies an abd pain. [facility] Disclaimer: The information contained in this section may have been updated after the patient was seen, as this information can be updated by other users. Medical History Diabetes mellitus Social History (Updated 07/12/23 @ 21:41 by Phyllis Dutta RN) Smoking Status: Current every day smoker alcohol intake: never substance use type: marijuana current occupational status: employed Travel in the last 8 weeks: None household members: family housing: house Review of Systems *Cardiovascular Cardiovascular: Reports system reviewed and no additional complaints, except as documented *Respiratory Respiratory: Reports system reviewed and no additional complaints, except as documented *Gastrointestinal Gastrointestinal: Reports hematemesis and Reports vomiting *Genitourinary Genitourinary: Reports system reviewed and no additional complaints, except as documented *Musculoskeletal Musculoskeletal: Reports muscle weakness *Neurologic Neurologic: Reports system reviewed and no additional complaints, except as documented Meds Home Medications and Allergies Home Medications Medication Instructions Recorded Confirmed Type insulin lispro 100 unit/mL See Rx Instructions .Ro
[2023-07-12 21:44] LABS: Coronavirus 19, PCR Not Detected (NotDetected); Influenza A, PCR Not Detected (NotDetected); Influenza B, PCR Not Detected (NotDetected)
[2023-07-12 21:46] LABS: Basophils % 0.2 % (0.1-2.0); Eosinophils # 0.1 K/mm3 (0.0-0.4); Eosinophils % 0.5 % (0.1-12.0); Hematocrit 42.4 % (42.0-52.0); Lymphocytes # 1.1 K/mm3 (0.7-4.5); Lymphocytes % 7.3 % (10-50); Mean Corpuscular HGB Conc 33.5 g/dL (31.8-35.4); Mean Corpuscular Hemoglobin 29.2 pg (27.0-31.2); Mean Corpuscular Volume 87.1 fl (80-94); Mean Platelet Volume 8.1 fl (7.4-10.4); Monocytes # 0.7 K/mm3 (0.1-1.0); Monocytes % 4.9 % (1.7-9.3); Neutrophils # 12.5 K/mm3 (1.8-7.8); Neutrophils % 87.2 % (37.0-80.0); Platelet Count 278 K/mm3 (142-424); Red Blood Count 4.86 M/mm3 (4.60-6.20); Red Cell Distribution Width 12.6 % (11.5-17.5); White Blood Count 14.4 K/mm3 (4.8-10.8)
[2023-07-12 21:46] LABS: Acetone, Serum (Rapid) Small (None Detect)
[2023-07-12 21:48] LABS: Chloride 108 mmol/L (98-107); Potassium 4.1 mmoL/L (3.5-5.1); Sodium 137 mmol/L (136-145)
[2023-07-12 21:51] LABS: Anion Gap 15.1 mEq/L (5-15); Blood Urea Nitrogen 18 mg/dl (9-20); Calcium 8.8 mg/dl (8.4-10.2); Carbon Dioxide 18 mmol/L (22.0-30.0); Creatinine Clearance Estimated 104 mL/min (50-200); Estimated Glomerular Filt Rate 85 ml/min (>60); GFR (African American) 103 ML/MIN (>60); Glucose 103 mg/dl (74-100)
[2023-07-12 21:52] LABS: Hemoglobin 14.2 g/dL (14.1-18.0); MANUAL DIFFERENTIAL MANUAL DIFFERENTIAL (MANUAL DIFF)
[2023-07-12 22:03] LABS: VBG Base Excess -7.6 mmol/L (-2.4-2.3); VBG HCO3 18.2 mmol/L (23-30); VBG Oxygen Saturation 61.7 % (50-70); VBG PCO2 34.7 mmol/L (35-51); VBG PH 7.34 mmol/L (7.31-7.41); VBG PO2 27.6 mmol/L (28-40); VBG Total CO2 19.2 mmol/L (23-27)
[2023-07-12 22:06] LABS: POC Glucose,Bedside 108 (70-110)
[2023-07-12 22:08] LABS: Microscopic, Urine URINE MICROSCOPIC (MICROSCOPIC)
[2023-07-12 22:09] LABS: Appearance,Urine CLEAR (Clear); Blood, Urine Negative (Negative); Color,Urine YELLOW (Yellow); Glucose,Urine (UA) Negative (Negative); Ketones,Urine 2+ (Negative); Leukocyte Esterase,Urine Negative (Negative); Nitrate,Urine Negative (Negative); Protein,Urine TRACE (Negative); Specific Gravity, Urine >= 1.030 (1.005-1.030); Urobilinogen,Urine 0.2 EU/dl (0.2)
[2023-07-12 22:10] LABS: Bilirubin,Urine 1+ (Negative)
[2023-07-12 22:13] LABS: Lymphocytes % 15 % (10-50); Monocytes % 3 % (2-9); Neutrophils % 82 % (42-76); Total Cells Counted 100
[2023-07-12 22:14] LABS: Platelet Estimate Normal; RBC Morphology Normal
[2023-07-12 22:27] LABS: Bacteria,Urine Trace /lpf; WBC,Urine Occasional #/hpf (0-3)
--- NOTE | 2023-07-12 22:30 | PC.NURSE ---
Insulin gtt discontinued on arrival to floor per AURORA Haq.
[2023-07-12 23:40] LABS: POC Glucose,Bedside 168 (70-110)
[2023-07-13] VITALS (17 sets, daily range): BP systolic 110–148; BP diastolic 63–78; PULSE 80–107; RESP 14–24; TEMP 36.6–38.1; O2SAT 94–100
[2023-07-13 00:16] LABS: POC Glucose,Bedside 213 (70-110)
[2023-07-13 00:30] LABS: Anion Gap 17.6 mEq/L (5-15); Blood Urea Nitrogen 17 mg/dl (9-20); Calcium 8.3 mg/dl (8.4-10.2); Carbon Dioxide 16 mmol/L (22.0-30.0); Chloride 104 mmol/L (98-107); Creatinine Clearance Estimated 116 mL/min (50-200); Estimated Glomerular Filt Rate 96 ml/min (>60); GFR (African American) 116 ML/MIN (>60); Glucose 220 mg/dl (74-100); Potassium 4.6 mmoL/L (3.5-5.1); Sodium 133 mmol/L (136-145)
[2023-07-13 01:16] LABS: POC Glucose,Bedside 219 (70-110)
[2023-07-13 03:15] LABS: POC Glucose,Bedside 203 (70-110)
[2023-07-13 05:33] LABS: POC Glucose,Bedside 196 (70-110)
[2023-07-13 06:27] LABS: Basophils % 0.1 % (0.1-2.0); Eosinophils % 0.2 % (0.1-12.0); Lymphocytes # 1.1 K/mm3 (0.7-4.5); Lymphocytes % 7.2 % (10-50); Mean Corpuscular HGB Conc 33.4 g/dL (31.8-35.4); Mean Corpuscular Hemoglobin 29.5 pg (27.0-31.2); Mean Corpuscular Volume 88.4 fl (80-94); Mean Platelet Volume 8.4 fl (7.4-10.4); Monocytes # 0.6 K/mm3 (0.1-1.0); Monocytes % 3.9 % (1.7-9.3); Neutrophils # 13.8 K/mm3 (1.8-7.8); Neutrophils % 88.4 % (37.0-80.0); Platelet Count 245 K/mm3 (142-424); Red Blood Count 4.42 M/mm3 (4.60-6.20); Red Cell Distribution Width 12.8 % (11.5-17.5); White Blood Count 15.6 K/mm3 (4.8-10.8)
[2023-07-13 06:34] LABS: Chloride 105 mmol/L (98-107); Sodium 134 mmol/L (136-145)
[2023-07-13 06:37] LABS: Blood Urea Nitrogen 16 mg/dl (9-20); Carbon Dioxide 17 mmol/L (22.0-30.0); Creatinine Clearance Estimated 130 mL/min (50-200); Estimated Glomerular Filt Rate 110 ml/min (>60); GFR (African American) 133 ML/MIN (>60)
[2023-07-13 06:38] LABS: Calcium 8.4 mg/dl (8.4-10.2); Glucose 208 mg/dl (74-100)
[2023-07-13 06:46] LABS: MANUAL DIFFERENTIAL MANUAL DIFFERENTIAL (MANUAL DIFF)
[2023-07-13 07:39] LABS: Lymphocytes % 10 % (10-50); Monocytes % 3 % (2-9); Neutrophils % 87 % (42-76); Total Cells Counted 100
--- NOTE | 2023-07-13 07:39 | EXP.SURG.CON ---
History of Present Illness *Admission Date: 07/12/23 *Reason for visit:: Hematemesis *History of present illness: This is a 33-year-old gentleman seen in consultation from the hospitalist service for evaluation regarding hematemesis. Please see HPI forwarded from admission H&P below. Currently, he feels better . He reports no additional episodes of bleeding. Forwarded from admission H&P: 33 year old male presented to the ED this morning around 0745. He presented with c/o vomting. He reported to the ED staff that he had been vomiting ever 2 hours and it has been bright red and dark. The pt reports one episode of vomiting in ED. The Day shift ED physician note reports dark red venous blood in vomit bag. PMHX of DM type 1. Dx at age of 23 and reports no prior DKA episodes. The pt states that he woke up Tuesday morning and was having muscle weakness and a headache. This occurred prior to the vomiting. He states he is complaint with his diabetes but has not been able to keep up with it due to vomiting for one day. The pt states as the vomiting progressed, he started to noticed the blood with it. Denies any lower GI bleeding. His hgb was 17.3 and was found to be in DKA due to hyperglycemia, elevated anion gap greater than 30, acetone in the blood and VBG with pH 7.1, CO2 29, bicarb 10.0. His CT of his chest revealed wall thickening of the mid and distal esophagus and the CT of the abdomen was negative for any source of active bleeding. Dr. Lubin spoke with Dr. Pagan at [facility] for further medical management. He spent 12 hours in the ED waiting to be transferred to [facility] and was started on the DKA protocol and given broad spectrum antibotics. At 20:30, Dr. Britt in the ED consulted hospitalist team at [facility] for possible admission. In the 12 hours of waiting the pt did not have any further episodes of vomiting. He was still on the the insulin drip and was hemodynamically stable in the ED. [facility] reported that pt would not be transferred anytime soon and was placed on a waitlist. The transfer to [facility] was canceled. The pt was admitted here to [facility] on the medical floor for ICU management of his insulin gtt and general surgery consult in the morning. The pt arrives to the ICU room without c/o nausea or pain. His blood sugar was 106 @ 2030 with the insulin gtt running. Upon my admission assessment, it was found that the pt was also wearing his dexcom and had been receiving insulin through it as well. His anion gap upon admission was 15 and his blood glucose was 103. Due to receiving insulin through dexcom as well, I had the insulin pump stopped and dexcom removed. The pt is NPO at midnight for surgery consult. SSI will be orderd. The pt will remain on D5 1/2 normal saline until next blood glucose test. The pt has blood cultures obtained in the ED. Upon admission, a CBC, acetone, occult stool, vbg, flu, covid, and urine are pending. The pt denies an abd pain. [facility] Disclaimer: The information contained in this section may have been updated after the patient was seen, as this information can be updated by other users. Medical History Diabetes mellitus Social History (Updated 07/12/23 @ 21:41 by Phyllis Dutta RN) Smoking Status: Current every day smoker alcohol intake: never substance use type: marijuana current occupational status: employed Travel in the last 8 weeks: None household members: family housing: house Review of Systems *Neurologic Neurologic: Reports system reviewed and no additional complaints, except as documented Meds Home Medications and Allergies Home Medications Medication Instructions Recorded Confirmed Type insulin lispro 100 unit/mL See Rx Instructions .Route 06/10/23 07/12/23 Rx subcutaneous solution .COMPLEX #30 mL insulin pump cart,cont inf,BT #30 ea 06/10/23 07/12/23 Rx (Omnipod Dash Pods (Gen 4) subcutaneous cartridge) lisinopril
[2023-07-13 07:41] LABS: Platelet Estimate Normal; RBC Morphology Normal
--- NOTE | 2023-07-13 08:54 | EXP.ACUTE.PN ---
Subjective *Date: 07/13/23 *Time: 09:10 Interval history: Patient feeling better this morning. Gap closing on morning labs. Feeling hungry, would like to try and eat. Stable on room air. Remains tachycardic. Complaining of some sore throat from vomiting yesterday. Denies any chest pain or shortness of breath. Interactive on exam. Reports this is his first episode of DKA since diagnosis for diabetes 8 years ago. Medical Exam Vital signs and Labs for Last 24 Hours: Vital Signs Temp Pulse Pulse Pulse Resp BP BP 07/13/23 07:30 98.3 F 07/13/23 07:00 94 H 14 120/63 07/13/23 07:00 07/13/23 06:00 101 H 16 117/66 07/13/23 05:00 90 16 118/67 07/13/23 05:00 07/13/23 04:00 90 07/13/23 04:00 98.3 F 93 H 18 116/70 07/13/23 00:00 80 07/13/23 03:00 101 H 18 110/67 07/13/23 03:00 07/13/23 02:00 93 H 18 114/65 07/13/23 01:00 92 H 16 114/64 07/13/23 01:00 07/13/23 00:00 98.3 F 106 H 14 113/63 07/12/23 21:10 100 H 07/12/23 23:00 102 H 16 120/70 07/12/23 23:00 07/12/23 21:00 97 H 16 141/81 H 07/12/23 22:00 102 H 07/12/23 22:00 101 H 18 118/68 07/12/23 21:00 07/12/23 21:20 100.5 F H 88 19 141/81 H 07/12/23 20:08 94 H 18 137/76 07/12/23 20:38 98.3 F 94 H 20 137/76 07/12/23 20:00 93 H 18 137/76 07/12/23 19:31 136 H 20 164/86 H 07/12/23 19:00 100 H 20 141/82 H 07/12/23 18:00 130/78 07/12/23 17:30 95 H 25 H 145/84 H 07/12/23 17:00 105 H 17 133/78 07/12/23 16:30 111 H 21 157/80 H 07/12/23 16:00 102 H 136/80 07/12/23 15:30 103 H 144/87 H 07/12/23 15:01 105 H 148/78 H 07/12/23 14:30 110 H 19 135/71 07/12/23 14:00 131 H 26 H 160/83 H 07/12/23 13:30 118 H 21 147/82 H 07/12/23 13:00 120 H 19 149/86 H 07/12/23 12:30 120 H 18 156/81 H 07/12/23 12:00 105 H 20 147/84 H 07/12/23 11:30 115 H 18 152/82 H 07/12/23 11:00 106 H 31 H 150/87 H 07/12/23 10:30 107 H 170/87 H 07/12/23 10:00 109 H 171/90 H 07/12/23 09:30 103 H 149/66 H Pulse Ox O2 Del Method 07/13/23 07:30 07/13/23 07:00 99 Room Air 07/13/23 07:00 Room Air 07/13/23 06:00 99 Room Air 07/13/23 05:00 98 Room Air 07/13/23 05:00 Room Air 07/13/23 04:00 07/13/23 04:00 98 Room Air 07/13/23 00:00 07/13/23 03:00 100 Room Air 07/13/23 03:00 Room Air 07/13/23 02:00 99 Room Air 07/13/23 01:00 99 Room Air 07/13/23 01:00 Room Air 07/13/23 00:00 99 Room Air 07/12/23 21:10 07/12/23 23:00 98 Room Air 07/12/23 23:00 Room Air 07/12/23 21:00 99 Room Air 07/12/23 22:00 98 Room Air 07/12/23 22:00 98 Room Air 07/12/23 21:00 Room Air 07/12/23 21:20 100 Room Air 07/12/23 20:08 98 Room Air 07/12/23 20:38 Room Air 07/12/23 20:00 98 Room Air 07/12/23 19:31 99 Room Air 07/12/23 19:00 98 Room Air 07/12/23 18:00 07/12/23 17:30 99 07/12/23 17:00 99 07/12/23 16:30 97 07/12/23 16:00 99 07/12/23 15:30 99 07/12/23 15:01 99 07/12/23 14:30 99 07/12/23 14:00 98 07/12/23 13:30 99 07/12/23 13:00 99 07/12/23 12:30 99 07/12/23 12:00 99 07/12/23 11:30 98 07/12/23 11:00 99 07/12/23 10:30 99 07/12/23 10:00 99 07/12/23 09:30 99 Intake and Output 07/12/23 07/13/23 07/13/23 23:59 07:59 15:59 Intake Total 550 / 1530 980 / 1530 Output Total 100 / 100 900 / 900 Balance -100 / 450 -350 / 630 980 / 630 Intake: Intake, Oral Amount 0 / 0 Intake, Other Amount 980 / 980 Intake, Total IV Amount 550 / 550 Dex 5% in 0.45% NaCl 1,000 ml @ 300 / 300 75 mls/hr IV .[id number] ABELARDO Rx#: [id number] Vancomycin/Water For Inj (Peg) 250 / 250 1.25 gm In 250 ml @ 125 mls/hr IV Q12H ABELARDO Rx#:[id number] Output:
[2023-07-13 12:08] LABS: POC Glucose,Bedside 243 (70-110)
[2023-07-13 12:20] LABS: Chloride 103 mmol/L (98-107); Potassium 4.2 mmoL/L (3.5-5.1); Sodium 133 mmol/L (136-145)
[2023-07-13 12:23] LABS: Blood Urea Nitrogen 16 mg/dl (9-20); Creatinine Clearance Estimated 116 mL/min (50-200); Estimated Glomerular Filt Rate 96 ml/min (>60); GFR (African American) 116 ML/MIN (>60)
[2023-07-13 12:24] LABS: Anion Gap 16.2 mEq/L (5-15); Calcium 8.4 mg/dl (8.4-10.2); Carbon Dioxide 18 mmol/L (22.0-30.0); Glucose 261 mg/dl (74-100)
[2023-07-13 17:32] LABS: POC Glucose,Bedside 240 (70-110)
[2023-07-13 18:10] LABS: Chloride 103 mmol/L (98-107); Sodium 134 mmol/L (136-145)
[2023-07-13 18:11] LABS: Potassium 3.7 mmoL/L (3.5-5.1)
[2023-07-13 18:14] LABS: Anion Gap 13.7 mEq/L (5-15); Blood Urea Nitrogen 14 mg/dl (9-20); Calcium 8.4 mg/dl (8.4-10.2); Carbon Dioxide 21 mmol/L (22.0-30.0); Creatinine Clearance Estimated 130 mL/min (50-200); Estimated Glomerular Filt Rate 110 ml/min (>60); GFR (African American) 133 ML/MIN (>60); Glucose 247 mg/dl (74-100)
--- NOTE | 2023-07-13 18:47 | PC.NURSE ---
pt has rested in his bed this shift. pt has declined getting cleaned up or changing his shirt. pt is a/o x 4. lungs are clear throughout, bowel sounds are active in all quads. nad noted.
[2023-07-13 20:56] LABS: Vancomycin,Trough 9.4 ug/mL (5.0-10.0)
[2023-07-13 22:49] LABS: POC Glucose,Bedside 252 (70-110)
[2023-07-14] VITALS: BP 132/66; PULSE 75; PULSE 77; RESP 16; TEMP 36.6; O2SAT 99
[2023-07-14 01:50] LABS: Vancomycin,Peak 13.6 ug/ml (11-39)
[2023-07-14 04:00] VITALS: BP 126/74; PULSE 76; RESP 16; TEMP 36.6; O2SAT 96; BMI 25.2
--- NOTE | 2023-07-14 04:07 | PC.NURSE ---
vanc peak and trough reviewed by [facility] pharmacist. no changes in dosing at this time.
[2023-07-14 05:49] LABS: POC Glucose,Bedside 211 (70-110)
[2023-07-14 06:09] LABS: Basophils # 0.1 K/mm3 (0-0.2); Basophils % 0.6 % (0.1-2.0); Eosinophils # 0.1 K/mm3 (0.0-0.4); Eosinophils % 0.7 % (0.1-12.0); Hematocrit 39.3 % (42.0-52.0); Hemoglobin 13.2 g/dL (14.1-18.0); Lymphocytes # 1.6 K/mm3 (0.7-4.5); Lymphocytes % 17.9 % (10-50); Mean Corpuscular HGB Conc 33.6 g/dL (31.8-35.4); Mean Corpuscular Hemoglobin 29.5 pg (27.0-31.2); Mean Corpuscular Volume 87.9 fl (80-94); Mean Platelet Volume 8.1 fl (7.4-10.4); Monocytes # 0.4 K/mm3 (0.1-1.0); Monocytes % 4.6 % (1.7-9.3); Neutrophils # 6.8 K/mm3 (1.8-7.8); Neutrophils % 76.2 % (37.0-80.0); Platelet Count 211 K/mm3 (142-424); Red Blood Count 4.47 M/mm3 (4.60-6.20); Red Cell Distribution Width 12.6 % (11.5-17.5); White Blood Count 8.9 K/mm3 (4.8-10.8)
[2023-07-14 06:27] LABS: Chloride 100 mmol/L (98-107)
[2023-07-14 06:28] LABS: Sodium 135 mmol/L (136-145)
[2023-07-14 06:30] LABS: Alanine Aminotransferase 14 U/L (12-78); Aspartate Amino Transferase 19 U/L (17-59); Blood Urea Nitrogen 12 mg/dl (9-20); Creatinine Clearance Estimated 152 mL/min (50-200); Estimated Glomerular Filt Rate 128 ml/min (>60); GFR (African American) 155 ML/MIN (>60)
[2023-07-14 06:31] LABS: Albumin Level 3.3 g/dl (3.5-5.0); Albumin/Globulin Ratio 1.5 (1.1-1.8); Alkaline Phosphatase 51 U/L (38-126); Bilirubin,Total 1.3 mg/dl (0.2-1.3); Calcium 8.3 mg/dl (8.4-10.2); Carbon Dioxide 24 mmol/L (22.0-30.0); Globulin 2.2 g/dL (1.3-3.2); Glucose 177 mg/dl (74-100); Total Protein,Serum 5.5 g/dl (6.3-8.2)
--- NOTE | 2023-07-14 06:47 | PC.NURSE ---
0640 LAB CALLED WITH CRITICAL POTASSIUM OF 3.0. [facility]ACK[facility] NOTIFIED.
--- NOTE | 2023-07-14 07:23 | EXP.DC.SUM ---
General Admission date:: 07/12/23 Discharge date: 07/14/23 HPI HPI HPI: 33 year old male presented to the ED this morning around 0745. He presented with c/o vomting. He reported to the ED staff that he had been vomiting ever 2 hours and it has been bright red and dark. The pt reports one episode of vomiting in ED. The Day shift ED physician note reports dark red venous blood in vomit bag. PMHX of DM type 1. Dx at age of 23 and reports no prior DKA episodes. The pt states that he woke up Tuesday morning and was having muscle weakness and a headache. This occurred prior to the vomiting. He states he is complaint with his diabetes but has not been able to keep up with it due to vomiting for one day. The pt states as the vomiting progressed, he started to noticed the blood with it. Denies any lower GI bleeding. His hgb was 17.3 and was found to be in DKA due to hyperglycemia, elevated anion gap greater than 30, acetone in the blood and VBG with pH 7.1, CO2 29, bicarb 10.0. His CT of his chest revealed wall thickening of the mid and distal esophagus and the CT of the abdomen was negative for any source of active bleeding. Dr. Lubin spoke with Dr. Pagan at [facility] for further medical management. He spent 12 hours in the ED waiting to be transferred to [facility] and was started on the DKA protocol and given broad spectrum antibotics. At 20:30, Dr. Britt in the ED consulted hospitalist team at [facility] for possible admission. In the 12 hours of waiting the pt did not have any further episodes of vomiting. He was still on the the insulin drip and was hemodynamically stable in the ED. [facility] reported that pt would not be transferred anytime soon and was placed on a waitlist. The transfer to [facility] was canceled. The pt was admitted here to [facility] on the medical floor for ICU management of his insulin gtt and general surgery consult in the morning. The pt arrives to the ICU room without c/o nausea or pain. His blood sugar was 106 @ 2030 with the insulin gtt running. Upon my admission assessment, it was found that the pt was also wearing his dexcom and had been receiving insulin through it as well. His anion gap upon admission was 15 and his blood glucose was 103. Due to receiving insulin through dexcom as well, I had the insulin pump stopped and dexcom removed. The pt is NPO at midnight for surgery consult. SSI will be orderd. The pt will remain on D5 1/2 normal saline until next blood glucose test. The pt has blood cultures obtained in the ED. Upon admission, a CBC, acetone, occult stool, vbg, flu, covid, and urine are pending. The pt denies an abd pain. Hospital Course Hospital Course Hospital Course: 33 year old male presented to the ED this morning around 0745. He presented with c/o vomting. He reported to the ED staff that he had been vomiting ever 2 hours and it has been bright red and dark. The pt reports one episode of vomiting in ED. The Day shift ED physician note reports dark red venous blood in vomit bag. PMHX of DM type 1. Dx at age of 23 and reports no prior DKA episodes. The pt states that he woke up Tuesday morning and was having muscle weakness and a headache. This occurred prior to the vomiting. He states he is complaint with his diabetes but has not been able to keep up with it due to vomiting for one day. The pt states as the vomiting progressed, he started to notice blood with it. Denies any lower GI bleeding. His hgb was 17.3 and was found to be in DKA due to hyperglycemia, elevated anion gap greater than 30, acetone in the blood and VBG with pH 7.1, CO2 29, bicarb 10.0. His CT of his chest revealed wall thickening of the mid and distal esophagus and the CT of the abdomen was negative for any source of active bleeding. Feeling better by morning. Gap closed and stayed closed for 24 hours. Tolerating p.o. intake. Currently tolerating basal bolus regimen. Discussed transitioning back to OmniPod once patient arrives home. Will need close follow-up with PCP.
[2023-07-14 07:48] VITALS: BP 130/71; PULSE 78; RESP 17; TEMP 36.6; O2SAT 98
[2023-07-14 07:51] VITALS: O2SAT 98
--- NOTE | 2023-07-14 08:16 | P.CONPHA_ITS ---
Pharmacy Consult Date: 07/14/23 Time: 08:16 Referring provider: DR. QUEEN Reason for Consult:: VANCOMYCIN LEVEL AND DOSE CHANGE Allergies Allergy/AdvReac Type Severity Reaction Status Date / Time aspirin Allergy Severe Hives on Verified 02/10/23 14:10 face - Tightness in chest Home Medications Medication Instructions Recorded Confirmed Type insulin lispro 100 unit/mL See Rx Instructions .Route 06/10/23 07/12/23 Rx subcutaneous solution .COMPLEX #30 mL insulin pump cart,cont inf,BT #30 ea 06/10/23 07/12/23 Rx (Omnipod Dash Pods (Gen 4) subcutaneous cartridge) lisinopril 2.5 mg tablet 2.5 mg PO DAILY 07/12/23 07/12/23 History simvastatin 10 mg tablet 10 mg PO HS 07/12/23 07/12/23 History New Prescriptions to Start Prescriptions: Height: 1.7 m Weight: 72.802 kg Laboratory Results:: Laboratory Results - last 24 hr 07/13/23 11:30: POC Glucose 243 H 07/13/23 12:04: Sodium 133 L, Potassium 4.2, Chloride 103, Carbon Dioxide 18 L, Anion Gap 16.2 H, BUN 16, Creatinine 0.90, Estimated Creat Clear 116, Estimated GFR 96, Est GFR ( Amer) 116, Glucose 261 H D, Calcium 8.4 07/13/23 17:10: POC Glucose 240 H 07/13/23 18:00: Sodium 134 L, Potassium 3.7, Chloride 103, Carbon Dioxide 21 L, Anion Gap 13.7, BUN 14, Creatinine 0.80, Estimated Creat Clear 130, Estimated GFR 110, Est GFR ( Amer) 133, Glucose 247 H, Calcium 8.4 07/13/23 20:00: Vancomycin Trough 9.4 07/13/23 20:25: POC Glucose 252 H 07/14/23 01:09: Vancomycin Peak 13.6 07/14/23 05:32: WBC 8.9 D, RBC 4.47 L, Hgb 13.2 L, Hct 39.3 L, MCV 87.9, MCH 29.5, MCHC 33.6, RDW 12.6, Plt Count 211, MPV 8.1, Neut % (Auto) 76.2, Lymph % (Auto) 17.9, [place] % (Auto) 4.6, Eos % (Auto) 0.7, Baso % (Auto) 0.6, Neut # (Auto) 6.8, Lymph # (Auto) 1.6, [place] # (Auto) 0.4, Eos # (Auto) 0.1, Baso # (Auto) 0.1, Sodium 135 L, Potassium 3.0 L, Chloride 100, Carbon Dioxide 24, Anion Gap 14.0, BUN 12, Creatinine 0.70, Estimated Creat Clear 152, Estimated GFR 128, Est GFR ( Amer) 155, Glucose 177 H D, Calcium 8.3 L, Magnesium 2.0, Total Bilirubin 1.3, AST 19 D, ALT 14 D, Alkaline Phosphatase 51, Total Protein 5.5 L D, Albumin 3.3 L, Globulin 2.2, Albumin/Globulin Ratio 1.5 07/14/23 05:42: POC Glucose 211 H Medical History: Medical History (Updated 07/13/23 @ 09:10 by Mandeep Queen MD) Diabetes mellitus Assessment and Plan Assessment and plan all Dx Assessment and Plan for all problems:: PATIENT'S VANCOMYCIN PEAK AND TROUGH LEVEL WERE 13.6 MCG/ML AND 9.4 MCG/ML, RESPECTIVELY. RECOMMEND CHANGING DOSE TO VANCOMYCIN 1500 MG Q12H AT THIS TIME.
[2023-07-14 08:53] LABS: POC Glucose,Bedside 215 (70-110)
--- NOTE | 2023-07-14 11:02 | PC.NURSE ---
both iv's removed.
--- NOTE | 2023-07-15 13:17 | SW/DCPLANNER ---
I made a follow up phone call w/ this patient today regarding hospital discharge. Patient stated he is doing well at home and was able to meat pickler all his medications. Patient had no further needs/questions at this time. Patient is aware of all follow up appointments.
--- NOTE | 2023-07-20 09:37 | PC.NURSE ---
0902-notified Dr. Jean of blood culture preliminary result. He reviewed pts chart. States most likely a contaminant. Requested I call the pt to check on him. States if improving no further action needed. 0935- called and spoke with pt, pt reports feeling better, states feels normal . Reminded pt to do proper follow up with pcp, return to the ER for and new or concerning symptoms. Pt verbalized understanding. Notified pt of positive blood culture result that Dr. Jean believes is most likely a contaminant but if any concerns be seen by a provider. Pt verbalized understanding.
== END 2023-07-14 12:12 | disposition home or self-care (01) | DRG 377 ==
LOC: ER 15:55 → 2ND 20:15
PROVIDERS: Emergency Medicine; Nurse Practitioner Critical Care Medicine; Admitting Provider Internal Medicine Adolescent Medicine; Emergency Provider Emergency Medicine; PCP Physician Assistant; Visit Provider Internal Medicine Adolescent Medicine
DX: K92.2 Gastrointestinal hemorrhage, unspecified (principal); E10.10 Type 1 diabetes mellitus with ketoacidosis without coma; R65.10 Systemic inflammatory response syndrome (SIRS) of non-infectious origin without acute organ dysfunction; K20.90 Esophagitis, unspecified without bleeding; Z72.0 Tobacco use; F17.200 Nicotine dependence, unspecified, uncomplicated; Z79.4 Long term (current) use of insulin; Z96.41 Presence of insulin pump (external) (internal); Z71.6 Tobacco abuse counseling
CPT/HCPCS: 36415; 71045; 71275; 74174; 80048; 80053; 80202; 80329; 81001; 82009; 82803; 82962; 83036; 83605; 83690; 83735; 84436; 84443; 84484; 85007; 85025; 86850; 87040; 87086; 87636; 93005; 99291; J2405; Q9967

== ENCOUNTER 2024-05-07 16:37 | Outpatient (CLI) | payer OTHER, SELFPAY ==
[2024-05-07 18:51] LABS: Basophils # 0.1 K/mm3 (0-0.2); Basophils % 1.4 % (0.1-2.0); Eosinophils # 0.3 K/mm3 (0.0-0.4); Eosinophils % 3.7 % (0.1-12.0); Hematocrit 39.2 % (42.0-52.0); Hemoglobin 15.3 g/dL (14.1-18.0); Lymphocytes # 2.3 K/mm3 (0.7-4.5); Lymphocytes % 30.5 % (10-50); Mean Corpuscular HGB Conc 38.9 g/dL (31.8-35.4); Mean Corpuscular Hemoglobin 35.9 pg (27.0-31.2); Mean Corpuscular Volume 92.2 fl (80-94); Mean Platelet Volume 8.5 fl (7.4-10.4); Monocytes # 0.4 K/mm3 (0.1-1.0); Monocytes % 5.2 % (1.7-9.3); Neutrophils # 4.4 K/mm3 (1.8-7.8); Neutrophils % 59.3 % (37.0-80.0); Platelet Count 204 K/mm3 (142-424); Red Blood Count 4.25 M/mm3 (4.60-6.20); Red Cell Distribution Width 13.8 % (11.5-17.5); White Blood Count 7.5 K/mm3 (4.8-10.8)
[2024-05-07 19:11] LABS: Creatinine,Urine Random 162 mg/dL (Not Estab.)
[2024-05-07 19:16] LABS: Alanine Aminotransferase 36 U/L (12-78); Albumin Level 4.1 g/dl (3.5-5.0); Albumin/Globulin Ratio 1.7 (1.1-1.8); Alkaline Phosphatase 58 U/L (38-126); Anion Gap 12.1 mEq/L (5-15); Aspartate Amino Transferase 32 U/L (17-59); Bilirubin,Total 0.8 mg/dl (0.2-1.3); Blood Urea Nitrogen 19 mg/dl (9-20); Calcium 9.2 mg/dl (8.4-10.2); Carbon Dioxide 27 mmol/L (22.0-30.0); Chloride 104 mmol/L (98-107); Chol/HDL Ratio 4.8 (1-3.5); Cholesterol 223 mg/dl (140-200); Estimated Glomerular Filt Rate 76 ml/min (>60); GFR (African American) 92 ML/MIN (>60); Globulin 2.4 g/dL (1.3-3.2); Glucose 104 mg/dl (74-100); HDL Cholesterol 46 mg/dl (40-60); Microalbumin < 6.000 mg/L (0-16.7); Potassium 4.1 mmoL/L (3.5-5.1); Sodium 139 mmol/L (136-145); Total Protein,Serum 6.5 g/dl (6.3-8.2); Triglycerides 305 mg/dl (30-150); VLDL Cholesterol 61 mg/dL (0-40)
[2024-05-07 19:27] LABS: Direct LDL Cholesterol 123.14 mg/dL (100-129)
[2024-05-07 19:37] LABS: 25-OH Vitamin D, Total 25.1 ng/mL (30-100)
[2024-05-07 19:50] LABS: Free Thyroxine Index 2.2 ug/dL (5.93-13.13); T4 (Thyroxine) 7.3 ug/dl (5.53-11.0); Triiodothryronine (T3) Uptake 30 % (23.5-40.5)
[2024-05-07 20:03] LABS: Hemoglobin A1C 6.7 % (4.0-6.0)
[2024-05-08 10:04] LABS: HIV (1&2) Antibody Rapid NONREACTIVE (NONREACTIVE)
[2024-05-09 08:48] LABS: HCV Ab Non Reactive (Non Reactive)
== END 2024-05-07 23:59 | disposition home or self-care (01) ==
LOC: LAB.DROPOF 05-08 16:37
PROVIDERS: PCP Family Medicine; Visit Provider Family Medicine
DX: Z87.19 Personal history of other diseases of the digestive system (principal); Z86.39 Personal history of other endocrine, nutritional and metabolic disease
CPT/HCPCS: 86803; 86703; 80050; 80053; 80061; 82043; 82306; 82570; 83036; 84436; 84443; 84479; 85025

== ENCOUNTER 2024-11-14 08:26 | Outpatient (CLI) | payer BC, SELFPAY ==
[2024-11-14 18:13] LABS: Basophils % 0.8 % (0.1-2.0); Eosinophils # 0.2 K/mm3 (0.0-0.4); Eosinophils % 4.2 % (0.1-12.0); Hemoglobin 14.8 g/dL (14.1-18.0); Lymphocytes # 1.7 K/mm3 (0.7-4.5); Lymphocytes % 35.8 % (10-50); Mean Corpuscular HGB Conc 34.4 g/dL (31.8-35.4); Mean Corpuscular Hemoglobin 30.3 pg (27.0-31.2); Mean Corpuscular Volume 87.9 fl (80-94); Mean Platelet Volume 10.3 fl (7.4-10.4); Monocytes # 0.4 K/mm3 (0.1-1.0); Monocytes % 7.5 % (1.7-9.3); Neutrophils # 2.5 K/mm3 (1.8-7.8); Neutrophils % 51.5 % (37.0-80.0); Platelet Count 208 K/mm3 (142-424); Red Blood Count 4.89 M/mm3 (4.60-6.20); White Blood Count 4.8 K/mm3 (4.8-10.8)
[2024-11-14 19:28] LABS: Albumin Level 5.2 g/dl (3.5-5.0); Chloride 104 mmol/L (98-107); Sodium 142 mmol/L (136-145)
[2024-11-14 19:29] LABS: Potassium 3.6 mmoL/L (3.5-5.1)
[2024-11-14 19:31] LABS: Alanine Aminotransferase 29 U/L (12-78); Albumin/Globulin Ratio 3.1 (1.1-1.8); Alkaline Phosphatase 60 U/L (38-126); Amylase 67 U/L (30-110); Anion Gap 12.6 mEq/L (5-15); Aspartate Amino Transferase 33 U/L (17-59); Bilirubin,Total 0.7 mg/dl (0.2-1.3); Blood Urea Nitrogen 12 mg/dl (9-20); Calcium 9.2 mg/dl (8.4-10.2); Carbon Dioxide 29 mmol/L (22.0-30.0); Estimated Glomerular Filt Rate 95 ml/min (>60); GFR (African American) 116 ML/MIN (>60); Globulin 1.7 g/dL (1.3-3.2); Total Protein,Serum 6.9 g/dl (6.3-8.2)
[2024-11-14 19:32] LABS: Lipase 22 U/L (23-300)
[2024-11-14 19:55] LABS: Glucose 50 mg/dl (74-100)
== END 2024-11-14 23:59 | disposition home or self-care (01) ==
LOC: LAB.DROPOF 11-16 08:26
PROVIDERS: PCP Family Medicine; Visit Provider Family Medicine
DX: Z00.00 Encounter for general adult medical examination without abnormal findings (principal); R10.9 Unspecified abdominal pain; E10.65 Type 1 diabetes mellitus with hyperglycemia
CPT/HCPCS: 80053; 82150; 83690; 85025

== ENCOUNTER 2025-08-13 11:45 | Outpatient (CLI) | payer MEDICAID, SELFPAY ==
--- OUTSIDE RECORDS SUMMARY | 2012-11-12 19:00 | XMS_ITS | Continuity of Care Document ---
Author Organization [facility] Address [address] [place] [id number] Phone Care Team Providers Care [employer] Pulper Name Role Phone Colton MCMANUS APRN, Gari Michelle Unavailable U navailable Medications Medication Instructions Dosage Effective Dates (start - stop) Status Comments Novolog Mix 70-30 100 unit/mL (70-30) Sub-Q inject 21 Unit by subcutaneous route 2 times every day as per insulin protocol 21 Unit - Active Zoloft 50 mg Tab take 1 tablet (50MG) by oral route every day 50 MG - Active Procedures Procedure Date NO SHOW FEE OFFICE/OUTPATIENT VISIT, EST No-Show Follow-Up No-Show Follow-Up NO SHOW FEE Case Management PSYTX, OFF, 45-50 MIN No-Show Follow-Up PSYTX, OFF, 45-50 MIN New Assessment [facility] Application OFFICE/OUTPATIENT VISIT, NEW Advance Directives Directive Yes / No Effective Date File Name No Information Encounters Encounter Description Practice Location Reason(s) For Visit Diagnoses Date Provider Providers Copied on Encounter [facility], [address] [place] [address], [id number], [place] tel:[phone] [facility] No Information 201 3 Colton Lorenzo. [address] [place] [address], [id number], [place]. tel:[phone] [facility], [address] [place] [address], [id number], [place] tel:[phone] [facility] DepressionDiabet es Mellitus, Adult Onset, Uncontrolled 3 No Information OFFICE/OUTPA TIENT VISIT, EST [facility], [address] [place] [address], [id number], [place] tel:[phone] [facility] No Information 3 Colton Lorenzo. [address] [place] [address], [id number], [place]. tel:[phone] [facility], [address] [place] [address], [id number], tel:[phone] [facility] No Information 3 Anitha Hurst. [address] [place] [address], [facility]. tel:[phone] [facility], [address] [place] [address], [id number], [place] tel:[phone] [facility] No Information 2 Colton Lorenzo. [address] [place] [address], [id number], [place]. tel:[phone] [facility], [address] [place] [address], [id number], [place] tel:[phone] [facility] No Information 2 Colton Lorenzo. [address] [place] [address], [id number], [place]. tel:[phone] [facility], [address] [place] [address], [id number], [place] tel:[phone] [facility] No Information Sep-10 11- 2 No Information [facility], [address] [place] [address], [id number], [place] tel:[phone] [facility] No Information 0 2 Lluvia Codey. [address] [place] [address], [facility]. tel:[phone] [facility], [address] [place] [address], [id number], tel:[phone] [facility] No Information 2 Lluvia Codey. [address] [place] [address], [facility]. tel:[phone] [facility], [address] [place] [address], [id number], tel:[phone] [facility] No Information 2 Lluvia Codey. [address] [place] [address], [facility]. tel:[phone] OFFICE/OUTPA TIENT VISIT, [facility], [address] [place] [address], [address] [place] [address], tel:[phone] [facility] No Information 2 Colton Lorenzo. [address] [place] [address], [facility], [place]. tel:[phone] Family History Family Member Type Diagnosis Age At Onset No Information Payers Payer name Insurance type Covered green party ID Authoriza tion(s) No Information Social History Type Description Quantity Date Captured Comments Sex Male Smoking Status No Information Chief Complaint And Reason For Visit No Information Reason For Referral Reason For Referral No Information History Of Present Illness Encounter Date Complaint History Of Prese nt Illness No Information Functional Status Date Functional Assessmen t No Information Instructions Date Instruction Additional Infor mation No Information Assessments Type Assessment Date No Information Patient Care Teams Name Effective Dates (start - stop) Status Members No Information
--- OUTSIDE RECORDS SUMMARY | 2023-07-12 11:01 | XMS_ITS | Encounter Summary ---
Author Organization [employer] ([place], [place], [place], [place], [place]) Address [address] [place] [address] Care Team Providers Care Healthcare Risk Control Consultant Name Role Phone Unavailable Primary Care Provider Unavailabl e Encounter Details Date Type Department Care Team (Late st Contact Info) Description 07/12/2023 12:01 PM EDT Hospital Encounter Brooks Pagan MD [address] [place] [address] Social History Tobacco Use Types Packs/Day Years Used Date Smoking Tobacco: Never Assessed Food Insecurity Answer Date Recorded Food run out past 12 months Not on file 10/11 Food did not last past 12 months Not on file 10/29/2023 Employment Answer Date Recorded Help finding and keeping a job Not on file 0 10/29/2023 Family and Community Support Answer Edwin e Recorded Help with Day to Day Activities Not on file 10/29/2023 Feeling Lonely or Isolated Not on file 10/29 Educational Attainment Answer Date Mumtaz rded Speak language other than [place] Citizen at home Not on file 10/29/2023 Want help with school or training Not on file 10/29/2023 Substance Use Answer Date Recorded Used prescription meds for non-medical reasons N ot on file 10/29/2023 Used illegal drugs past 12 months Not on file 10/29/2023 Sex and Gender Information Value Date Recorded Sex Assigned at Not on file Legal Sex Male 11:01 AM CDT Gender Identity Not on file Sexual Orientation Not on file documented as of this encounter Plan of Treatment Not on file documented as of this encounter Visit Diagnoses Diagnosis Diabetic ketoacidosis (HCC)- Primary Type II or unspecified type diabetes mellitus with ketoacidosis, not stated as uncontrolled GI bleeding Unspecified, hemorrhage of gastrointestinal tract Acute blood loss anemia Acute posthemorrhagic anemia Type 1 diabetes (HCC) documented in this encounter
[2025-08-13 15:19] LABS: Hematocrit 46.7 % (42.0-52.0); Hemoglobin 15.8 g/dL (14.1-18.0); Immature Granulocytes % 0.3 %; Mean Corpuscular HGB Conc 33.8 g/dL (31.8-35.4); Mean Corpuscular Hemoglobin 29.6 pg (27.0-31.2); Mean Corpuscular Volume 87.6 fl (80-94); Nucleated Red Blood Cells % 0 %; Platelet Count 217 K/mm3 (142-424); Red Blood Count 5.33 M/mm3 (4.60-6.20); Red Cell Distribution Width-SD 39.8 fL; White Blood Count 7.7 K/mm3 (4.8-10.8)
[2025-08-13 15:42] LABS: Alanine Aminotransferase 19 U/L (12-78); Albumin Level 4.6 g/dl (3.5-5.0); Albumin/Globulin Ratio 1.6 (1.1-1.8); Alkaline Phosphatase 60 U/L (38-126); Anion Gap 12.2 mEq/L (5-15); Aspartate Amino Transferase 27 U/L (17-59); Bilirubin,Total 1.2 mg/dl (0.2-1.3); Blood Urea Nitrogen 18 mg/dl (9-20); Calcium 9.2 mg/dl (8.4-10.2); Carbon Dioxide 25 mmol/L (22.0-30.0); Chloride 103 mmol/L (98-107); Creatinine,Serum 0.90 mg/dl (0.66-1.25); Estimated Glomerular Filt Rate 95 ml/min (>60); GFR (African American) 115 ML/MIN (>60); Globulin 2.9 g/dL (1.3-3.2); Glucose 138 mg/dl (74-100); Potassium 4.2 mmoL/L (3.5-5.1); Sodium 136 mmol/L (136-145); Total Protein,Serum 7.5 g/dl (6.3-8.2)
[2025-08-13 16:34] LABS: Hepatitis C Ab Qual. W/ RFX NEGATIVE (Negative)
[2025-08-13 17:01] LABS: Hemoglobin A1C 6.5 % (4.0-6.0)
[2025-08-14 10:12] LABS: Hepatitis B Surface Antigen Negative (Negative)
--- OUTSIDE RECORDS SUMMARY | 2025-08-14 21:04 | XMS_ITS | Referral Summary ---
Author Organization [employer] ([place], [place], [place], [place], [place]) Address [address] [place] [address] Care Team Providers Care Media Manager Name Role Phone Unavailable Primary Care Provider Unavailabl e Active Problems Problem Noted Date Diagnosed Date GI bleeding 07/12/2023 Acute blood loss anemia 07/12/2023 Diabetic ketoacidosis 07/12/2023 Type 1 diabetes 07/12/2023 Social History Tobacco Use Types Packs/Day Years [...] Date Mumtaz rded Speak language other than Tongan at home Not on file 10/29/2023 Want [...] on file Sexual Orientation Not on file Plan of Treatment Not on file
--- OUTSIDE RECORDS SUMMARY | 2025-08-14 21:04 | XMS_ITS | Clinical Summary ---
Author Organization [facility] ([place], [place], [place], [place], [place]) Address [address] [place] [address] Care Team Providers Care Competency Evaluated Nurse Aide Name Role Phone Unavailable Primary Care Provider [...] Date Mumtaz rded Speak language other than Moldovan at home Not on file 10/29/2023 Want [...]
--- OUTSIDE RECORDS SUMMARY | 2025-08-14 21:04 | XMS_ITS | Clinical Summary ---
Author Organization [facility] Address [address] [place] [address] Care Team Providers Care [employer] Name Role Phone Provider, No Known Primary Care Provider Unavail able Allergies Active Allergy Reactions Criticality Noted Date Comments Aspirin Hives High 02/10/2023 Medications simvastatin (ZOCOR) 10 MG tablet Take 1 tablet by mouth Every Night. Active lisinopril (PRINIVIL,ZESTR IL) 2.5 MG tablet Take 1 tablet by mouth Daily. Active pantoprazole (PROTONIX) 40 MG EC tablet Take 1 tablet by mouth Daily. 4 Active Lantus 100 UNIT/ML injection Inject 32 Units under the skin into the appropriate area as directed Daily. 40 mL 1 4 Active Insulin Lispro (HumaLOG) 100 UNIT/ML injection For use at mealtimes and per correctional scale, MDD 50 units 50 mL 5 4 Active Active Problems No known active problems Family History Medical History Relation Name Comments Diabetes Brother 1 Hilario Diabetes Brother 2 Hilario Rausch Diabetes Mother Geno jaquezabrida Kidney disease Mother Geno haneyida Kidney failure Mother Geno jaquezabrida Diabetes Sister 1 Melissa Diabetes Sister 2 Melissa willums Relation Name Status Comments Brother 1 Hilario Alive Brother 2 Hilario Rausch Father Alive Mother Geno jaquezabrida Alive Sister 1 Melissa Alive Sister 2 Melissa willums Social History Tobacco Use Types Packs/Day Years Used Date Smoking Tobacco: Some Days Cigarettes 0.3 10 Smokeless Tobacco: Never Tobacco Cessation:Ready to Q uit: Not Asked; Counseling Given: Not Answered Alcohol Use Standard Drinks/Week Comments Not Currently 0 (1 standard drink = 0.6 oz pur e alcohol) occasionally Abuse Screen Answer Date Recorded Unsafe at Home or Work/School Not on file Feels Threatened by Someone? Not on file Does Anyone Keep You from Co ntacting Others or Doint Things Outside the Home? Not on file 07/26/2023 Physical Sign of Abuse Present Not on file 1 Housing Stability Answer Date Recorded Current Living Arrangements Not on file 07/10 Potentially Unsafe Housing Conditions Not on antwan e 07/26/2023 Family and Community Support Answer Edwin e Recorded Help with Day-to-Day Activities Not on file 07/26/2023 Lonely or Isolated Not on file 07/26/2023 Employment Answer Date Recorded Do you want help finding or keeping work or a abdirahman b? Not on file 07/26/2023 Disabilities Answer Date Recorded Concentrating, Remembering, or Making Decisions Difficulty Not on file 07/26/2023 Doing Errands Independently Difficulty Not on fi le 07/26/2023 Education Answer Date Recorded Help with school or training? Not on file Preferred Language Not on file 07/26/2023 Sex and Gender Information Value Date Recorded Sex Assigned at Not on file Legal Sex Male 1:02 PM EDT Gender Identity Not on file Sexual Orientation Not on file Last Filed Vital Signs Vital Sign Reading Time Taken Comments Blood Pressure 124/62 08/07/2024 3:12 PM EDT Pulse 81 08/07/2024 3:12 PM EDT Temperature - - Respiratory Rate - - Oxygen Saturation 95% 08/07/2024 3:12 PM EDT Inhaled Oxygen Concentration - - Weight 87.2 kg (192 lb 3.2 oz) 08/07/2024 3:12 P M EDT Height 162.6 cm (5' 4.02 ) 08/07/2024 3:12 PM ED T Body Mass Index 32.97 08/07/2024 3:12 PM EDT Plan of Treatment Health Maintenance Due Date Last Done Comments DIABETIC FOOT EXAM 02/25/1998 URINE MICROALBUMIN-CREATININE RATIO (uACR) 02/25/1998 Hepatitis B (1 of 3 - 19+ 3-dose series) 02/25/2007 Pneumococcal Vaccine 0-49 (1 of 2 - PCV) 02/25/2007 TDAP/TD VACCINES (1 - Tdap) 07/13/2014 07/12/2014 ANNUAL PHYSICAL 12/13/2023 HEPATITIS C SCREENING 12/13/2023 HEMOGLOBIN A1C 02/05/2025 08/07/2024, 12/14/2023 INFLUENZA VACCINE 05/10/2025 DIABETIC EYE EXAM 08/07/2025 08/07/2024 Procedures Procedure Name Priority Date/Time Associated Diagnosis Comments POCT GLYCOSYLATED HEMOGLOBIN (HGB A1C) Routine 08/07/2024 3:30 PM EDT Type 1 diabetes mellitus with hyperglycemia SCANNED - EYE EXAM 08/07/2024 from Last 3 Months or Most Recently Relevant to Health Maintenance Results * (ABNORMAL) POC Glycosylated Hemoglobin (Hb A1C) (08/07/2024 3:30 PM EDT) Hemoglobin A1C 6.2(A) 4.5 - 5.7 % [facility] Lot Number [id number] [facility] Expiration Date [facility] Blood 08/07/2024 3:30 PM EDT us Irma James MD POINT OF CARE TEST ORDERABLES F inal Result [facility]
[address] [place] [address], * EYE EXAM SCANNED (08/07/2024) Anatomical Region Laterality Modality Other us Irma James MD CHART REVIEW TABS Final Resu lt from Last 3 Months or Most Recently Relevant to [place] [address] Care Teams [employer] Relationship Specialty Start Date End Date Provider, [place] [address] PCP - General 08/07/24
== END 2025-08-13 23:59 | disposition home or self-care (01) ==
LOC: LAB.DROPOF 08-14 21:02
PROVIDERS: PCP Student in an Organized Health Care Education/Training Program; Visit Provider Family Medicine
DX: E10.65 Type 1 diabetes mellitus with hyperglycemia (principal); Z11.59 Encounter for screening for other viral diseases
CPT/HCPCS: 80053; 82043; 82570; 83036; 85025; 86803; 87340; 87389